=== PATIENT | female | born 1945 | race Caucasian/White ===

== ENCOUNTER 2016-11-12 12:17 | Inpatient (IN) | payer MEDICARE, MEDICAID ==
[~2016-11-12] VITALS: Ht 160 cm; Wt 70.0 kg
[~2016-11-12 12:17] MED LIST: ASCO500C6 PO; CITA20TA11 PO; GABA600T2 PO; INSLIS SUBQ; INSU100V7 SUBQ; LACT1CAP60 PO; LOPE2CAP PO; METO10TA3 PO; MORPHINE SULFATE PO; OMEG-38 PO; OMEP20CA11 PO; PRED5SOL7 PO
[2016-11-12 12:23] VITALS: BP 140/67; PULSE 107; RESP 30; O2SAT 92
--- NOTE | 2016-11-12 12:39 | ED.REPORT ---
HPI-Dizziness / Weakness Date of Service Nov 12, 2016 ED Provider: History of Present Illness: vomiting and decreased energy. Hx of uti's. Stopped medication to prevent UTI's, no reason. No primary care. can't walk or function, no eating. for 2 days. Getting weaker for a week. Nursing Notes Stated Complaint: NAUSEA/WEAK Chief Complaint: General Complaint Nursing Notes Reviewed: Yes Allergies: Coded Allergies: hexachlorophene (Verified Allergy, Unknown, 11/12/16) Scheduled Ascorbic Acid (Vitamin C) 250 Mg Tab.chew 500 MG PO DAILY Citalopram (Citalopram) 40 Mg Tablet 40 MG PO DAILY Ezetimibe (Ezetimibe) 10 Mg Tablet 10 MG PO QAM Gabapentin (Gabapentin) 600 Mg Tablet 600 MG PO HS Insulin Glargine (Lantus U100 Insulin Vial) 100 Unit/Ml Vial 35 UNIT SUBQ HS Insulin Human Lispro (HumaLOG U100 Insulin Vial) 100 Unit/Ml Unit 15 UNIT SUBQ TIDAC Check blood sugars before meals and at bedtime. Use correction factor only before meals. Blood Sugar Lispro Correction: <151, 0 units; 151-175, 1 unit; 176-200, 2 units; 201-225, 3 units; 226-250, 4 units; 251-275, 5 units; 276-300 , 6 units; 301-325, 7 units; 326-350, 8 units; 351-375, 9 units; 376-400, 10 units; >400, 12 units. Lactobac Cmb #3/Fos/Pantethine (Probiotic & Acidophilus Cap) 1 Each Capsule 1 EACH PO DAILY Morphine Sulfate (Morphine Sulfate) 15 Mg Tablet 15 MG PO QID Omeprazole (Omeprazole) 20 Mg Capsule.dr 20 MG PO DAILY Prednisolone Sod Phosphate (Prednisolone Sodium Phosphate) 15 Mg/5 Ml Solution 20 MG PO QAM Sulfamethoxazole/Trimeth 400-80 mg (Bactrim 400-80 mg) 1 Each Tablet 1 TABLET PO BID Scheduled PRN Clobetasol Propionate (Clobetasol Propionate) 15 Gm Oint...g. 1 APPLIC TP BID PRN PRN RASH Loperamide (Loperamide) 2 Mg Capsule 2 MG PO Q4H PRN PRN For Diarrhea or Loose Stool General Time Seen by MD: 12:37 Chief Complaint Generalized weakness Hx Obtained From: Patient Onset Occurred: 1 week ago Symptom Duration: Since onset Past Medical History Past Medical History Kidney cancer, adrenal cancer, lung cancer breast cancer Reports: Cancer, Diabetes mellitus, Denies: Asthma, Hypertension Past Surgical History breast, kidney adrenal Reports: Cholecystectomy Smoking History Current Every Day Smoker (1/2 pack a day for 60 years) Social History Alcohol Use: Denies alcohol use Drug Use: Denies drug use Occupation lives by self, no work or school. 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 Ambulatory Status Independent Review of Systems Basic Review of Systems : No dysuria, No frequency Allergy / Immune: No allergy Physical Exam Initial Vital Signs Vital Signs (First) Date Time Temp Pulse Resp B/P Pulse Ox O2 Delivery O2 Flow Rate FiO2 11/12/16 12:23 36.9 107 30 140/67 92 Room Air 11/12/16 14:57 1 Initial VS: Reviewed, Vital signs normal ENT: Mucous membranes moist, Conjunctiva normal, No scleral icterus Neck: Supple, Non-tender, Full range of motion Abdomen / GI: Soft, Non-tender, No guarding, No rebound, No distention Back: No CVA tenderness Lymphatic: No lymphadenopathy Extremities: Vascular intact, Neuro intact, No swelling, No tenderness Skin: Warm, Dry, No cyanosis Psychiatric: Mood/affect normal, Behavior normal, Normal thought content General/Constitutional: Awake, Alert, No acute distress, Well appearing, Well developed, Well hydrated, Well nourished, Cooperative, Not toxic appearing Head / Eyes: Atraumatic, Normocephalic, PERRL, EOMI Respiratory / Chest: Atraumatic, Breath sounds NL, Breath sounds = bilat, No respiratory distress Rales / Rhonchi: Positive: Rhonchi coarse L, Rhonchi coarse R Cardiovascular: Heart rate NL, Regular rhythm, Heart sounds NL Neurologic: Oriented X3, Speech NL, No motor deficits Interpretation & Diagnostics Interpretation & Diagnostics: OCEDURE: X-RAY CHEST, TWO VIEWS ([id number]) INDICATIONS: cough TECHNIQUE: 2 views of the chest were acquired. COMPARISON: Outside Film, CR, XR CHEST 2VW, 09/20/2015, 14:14. FINDINGS: Surgical changes and devices: Numerous surgical clips as before. Lungs and pleura: Redemonstration of left midlung subpleural nodule with spiculated appearance, grossly unchanged since 09/20/15. No acute disease. Scattered scarring/atelectasis Mediastinum: Mediastinal contours are normal. Heart size is normal. Bones and chest wall: No suspicious bony abnormalities. Soft tissues appear unremarkable. IMPRESSION: Overall, no interval change since 09/20/15 as detailed above. No acute disease. Lab Results Interpretation Result Diagram: 11/12/16 1300 11/12/16 1300 Test 11/12/16 13:00 11/12/16 13:31 11/12/16 14:57 White Blood Count 6.6th/mm3 (3.8-10.1) Red Blood Count 5.11mil/mm3 (3.90-5.20) Hemoglobin 16.1g/dL (12.0-15.6) Hematocrit 47.7% (35.0-46.0) Mean Corpuscular Volume 93.3fL (81-100) Mean Corpuscular Hemoglobin 31.5pg (27.0-35.0) Mean Corpuscular Hemoglobin Concent 33.8% (32.0-37.0) Red Cell Distribution Width 14.5% (12.3-15.4) Platelet Count 151bil/L (150-400) Neutrophils (%) (Auto) 75.7% (40-74) Lymphocytes (%) (Auto) 14.0% (14-46) Monocytes (%) (Auto) 9.2% (4-12) Eosinophils (%) (Auto) 0.3% (0-5) Basophils (%) (Auto) 0.6% (0-3) Sodium Level 134mEq/L (134-144) Potassium Level 4.3mEq/L (3.5-5.2) Chloride Level 91mEq/L (97-108) Carbon Dioxide Level 24mmol/L (18-29) Blood Urea Nitrogen 21mg/dL (8-27) Creatinine 1.01mg/dL (0.57-1.00) Estimat Glomerular Filtration Rate 77mL/min (>59) Glucose Level 309mg/dL (60-99) Calcium Level 8.6mg/dL (8.5-10.1) Total Bilirubin 0.4mg/dL (0.0-1.2) Aspartate Amino Transf (AST/SGOT) 25U/L (0-50) Alanine Aminotransferase (ALT/SGPT) 21U/L (0-32) Alkaline Phosphatase 127U/L (25-165) Troponin T < 0.010ug/L (0.0-0.011) Total Protein 6.4g/dL (6.4-8.4) Albumin 3.7g/dL (3.4-5.0) Procalcitonin 0.18ng/mL (0.00-0.08) Urinalysis Comment None Lactic Acid Level 1.6mmol/L (0.4-2.0) Urine Color Yellow (YELLOW) Urine Appearance Clear (CLEAR,HAZY) Urine pH 6.0 (5.0-8.0) Urine Specific [place] 1.005 (1.003-1.035) Urine Protein Negativemg/dL (NEG,TRACE) Urine Glucose (UA) 250mg/dL (NEGATIVE) Urine Ketones Tracemg/dL (NEGATIVE) Urine Occult Blood Trace (NEGATIVE) Urine Nitrite Negative (NEGATIVE) Urine Bilirubin Negative (NEGATIVE) Urine Urobilinogen Normalmg/dL (NORMAL) Urine Leukocyte Esterase Moderate (NEGATIVE) Urine RBC 0-2/hpf (0-2) Urine WBC 11-50/hpf (0-5) Urine Epithelial Cells Occasional/hpf (NONE-MOD) Urine Crystals None seen (NONE SEEN) Urine Bacteria None/hpf (NONE-FEW) Urine Hyaline Casts None/lpf (NONE) Urine Granular Casts None seen (NONE SEEN) Urine Waxy Casts None seen (NONE SEEN) Urine Red Blood Cell Casts None seen (NONE SEEN) Urine White Blood Cell Casts None seen (NONE SEEN) Urine Mucus None seen (None Seen) Urine Trichomonas None seen (NONE SEEN) Urine Yeast None (NONE SEEN) Urine Culture Reflexed Indicated Re-Eval/Medical Decision Med Decision/Clinical Course 71 year old female with weakness presents to the ER for evualation. Long hx. of UTI. Lives by self. Urine does show infection. No sign of hyperventalation or TIA Patient Discharge & Departure Impression: Primary Impression: Urinary tract infection Encounter type: initial encounter Additional Impression: Weakness generalized Disposition: ADMITTED TO HOSPITAL Referrals: NOPCP (PCP) EDSupervising Provider for APC: David Chun MD, Sue ARNP Nov 12, 2016 12:39
[2016-11-12] MEDS ORDERED: 0.9% Sodium Chloride 1,000 ML IV ONE (12:50)
[2016-11-12] MEDS ORDERED: Ondansetron 2 mg/mL 2 mL Inj IVPUSH ONE (12:50)
[2016-11-12 13:08] LABS: BASOPHILS % (AUTO) 0.6 % (0-3); EOSINOPHILS % (AUTO) 0.3 % (0-5); MONOCYTES % (AUTO) 9.2 % (4-12); Mean Corpuscular Hemoglobin 31.5 pg (27.0-35.0); Mean Corpuscular Volume 93.3 fL (81-100); NEUTROPHILS % (AUTO) 75.7 % (40-74); Platelet Count 151 bil/L (150-400)
[2016-11-12 13:59] LABS: APPEARANCE,URINE CLEAR (CLEAR,HAZY); COLOR,URINE YELLOW (YELLOW); OCCULT BLOOD,URINE TRACE (NEGATIVE)
[2016-11-12 14:01] LABS: TROPONIN T < 0.010 ug/L (0.0-0.011)
--- NOTE | 2016-11-12 14:25 | DRSVH ---
PROCEDURE: X-RAY CHEST, TWO VIEWS ([id number]) INDICATIONS: cough TECHNIQUE: 2 views of the chest were acquired. COMPARISON: Outside Film, CR, XR CHEST 2VW, 09/20/2015, 14:14. FINDINGS: Surgical changes and devices: Numerous surgical clips as before. Lungs and pleura: Redemonstration of left midlung subpleural nodule with spiculated appearance, gross ly unchanged since 09/20/15. No acute disease. Scattered scarring/atelectasis Mediastinum: Mediastinal contours are normal. Heart size is normal. Bones and chest wall: No suspicious bony abnormalities. Soft tissues appear unremarkable. IMPRESSION: Overall, no interval change since 09/20/15 as detailed above. No acute disease. Dictated by: Олег Lopez M.D. on 11/12/2016 at 14:22 Approved by: Олег Lopez M.D. on 11/12/2016 at 14:23
[2016-11-12 14:57] VITALS: RESP 22; O2SAT 89
[2016-11-12 15:22] LABS: APPEARANCE,URINE CLEAR (CLEAR,HAZY); COLOR,URINE YELLOW (YELLOW); OCCULT BLOOD,URINE TRACE (NEGATIVE); UROBILINOGEN,URINE NORMAL (NORMAL)
[2016-11-12] MEDS ORDERED: cefTRIAXone Inj 1,000 MG in Dextrose 5% Minibag Plus 50 ML IV ONE ×2 (15:30→17:45)
[2016-11-12] MEDS ORDERED: CLOB15OI2 TP (17:37)
[2016-11-12] MEDS ORDERED: MORP15TA PO (17:37)
[2016-11-12] MEDS ORDERED: EZET10TA27 PO (17:37)
[2016-11-12] MEDS ORDERED: Polyethylene Glycol (PEG) 17 Gm Powder PO PRN (17:45)
[2016-11-12] MEDS ORDERED: Ondansetron 2 mg/mL 2 mL Inj IVPUSH PRN (17:45)
[2016-11-12] MEDS ORDERED: Alum-Mag Hydrox-Simeth 30 mL Suspension PO PRN (17:45)
[2016-11-12] MEDS ORDERED: HYDROcodone-APAP 5-325 mg Tablet PO PRN (17:45)
[2016-11-12] MEDS ORDERED: Glucose 40% Oral Gel 15 Gm Tube PO PRN (17:50)
[2016-11-12] MEDS: 0.9% Sodium Chloride 1,000 ML IV SCH ×2 (18:14→22:58)
--- NOTE | 2016-11-12 18:16 | PCM.HPMED ---
Subjective Date of Service Nov 12, 2016 Primary Provider: Admitting Physician: Marek Bella MD Primary Care Physician: Rocco Attending Physician: Marek Bella MD Admit Status: From the Emergency Department Chief Complaint: Nausea, Vomiting, Weakness History of Present Illness: Patient is a 71 year old female with a past medical history of COPD, Diabetes Mellitus Type II, and chronic UTI's. She presents to the ER at [facility] complaining of a 2 day history of nausea, vomiting, and worsening weakness. Pt states her symptoms started yesterday, and she has been unable to tolerate any PO since then. She states she has become significantly weak over the last day and now is unable to ambulate as she is so weak. Pt denies any abdominal pain, fever, diarrhea, and constipation. She states her urine has been darker than normal. She denies increased urinary frequency, urgency, and hematuria. She states she is on chronic UTI supressive therapy with Bactrim, however she has not taken this medication in several weeks because she doesn't "want to". Pt has no other complaints or concerns at this time. Review of Systems: All systems reviewed and are negative except for what has already been mentioned in the HPI. Allergies Coded Allergies: hexachlorophene (Verified Allergy, Unknown, 06/14/15) Home Medications Pt is unsure of her home medications and her medication reconciliation has not yet been completed. PMH 1. Chronic UTI's 2. Diabetes Mellitus, Type II 3. Tobacco Use Disorder 4. COPD Surgical History None Family History Pt reports a history of heart disease in her mother and maternal uncle. Social History Hx Alcohol Use: No Hx Substance Use: No Hx Tobacco Use: Yes Smoking Status: Current Every Day Smoker (1/2 pack a day for 60 years) Exam Vital Signs Vital Sign - Last Date Time Temp Pulse Resp B/P Pulse Ox O2 Delivery O2 Flow Rate FiO2 11/12/16 14:57 22 89 Room Air 1 11/12/16 12:23 36.9 107 140/67 Exam GENERAL: NAD, Pt laying comfortably in bed HEENT: AT/NC, PERRLA, EOMI, MM parched CARDIAC: RRR, No M/R/G PULM: CTAB ABD: Soft, NT, ND, positive BS in all quadrants EXT: No C/C/E, No calve tenderness in bilateral lower extremities SKIN: Warm, dry, mild skin tenting present NEURO: Alert and oriented x3; Following all commands Lab and Diagnostics Result Diagram: 11/12/16 1300 11/12/16 1300 X-Rays, CTs and MRIs X-RAY CHEST, TWO VIEWS INDICATIONS: cough TECHNIQUE: 2 views of the chest were acquired. COMPARISON: Outside Film, CR, XR CHEST 2VW, 09/20/2015, 14:14. FINDINGS: Surgical changes and devices: Numerous surgical clips as before. Lungs and pleura: Redemonstration of left midlung subpleural nodule with spiculated appearance, grossly unchanged since 09/20/15. No acute disease. Scattered scarring/atelectasis Mediastinum: Mediastinal contours are normal. Heart size is normal. Bones and chest wall: No suspicious bony abnormalities. Soft tissues appear unremarkable. IMPRESSION: Overall, no interval change since 09/20/15 as detailed above. No acute disease. Assessment & Plan Patient is a 71 year old female who is admitted to hospital with significant Dehydration secondary to Nausea and Vomiting, as well as an Acute UTI. 1. Acute UTI - Start Rocephin 2 grams IV daily - Blood cultures x2 sent from the ER - Urine culture pending - Check procalcitonin now - Repeat CBC with diff in AM 2. Nausea with Vomiting, Acute - Secondary to #1 likely - Start Normal Saline IV at 100 mL/hour - IV Zofran 4-8 mg q 6 hours PRN 3. Dehydration - Secondary to #2 - Continue rehydration with IV fluids - Check BMP in AM 4. COPD - Not in acute exacerbation - Pt is unsure of which medication she takes at home - Resume home medications once medication reconciliation complete 5. Diabetes Mellitus, Type II - Check HgbA1c now - Check FSBS q AC and HS - Start medium dose SSI now 6. Tobacco Use Disorder - Nicotine patch PRN 7. Generalized Weakness - Related to #1, #2, and #3 - PT evaluation 8. Disposition - Anticipate pt will be in hospital for at least 2 midnights FULL CODE, per discussion with patient at bedside Marek Bella MD Nov 12, 2016 18:16
[2016-11-12 18:17] VITALS: BP 132/64; PULSE 101; RESP 16; O2SAT 94
[2016-11-12 18:23] VITALS: BP 131/75; PULSE 88; RESP 18
[2016-11-12] MEDS ORDERED: SULF1TAB34 PO ×2 (18:52→20:03)
[2016-11-12] MEDS ORDERED: CHOL500050 PO (18:52)
--- NOTE | 2016-11-12 19:13 | NUR ---
Admit Pt arrived to [facility] rm 1002 from the ED via guro. Rec'd report from MEMO Stahl. Pt was moved to the hospital bed via slider board and [address] Bella in room for admission. Admit and med rec complete. IV running NS at 75mls/hr from the ED. Pt oriented to room and call light completed by TARYN.
[2016-11-12] MEDS ORDERED: CITA40TA13 PO (19:56)
[2016-11-12] MEDS ORDERED: ASCO250T7 PO (19:56)
[2016-11-12] MEDS ORDERED: PRED15SO5 PO (19:59)
[2016-11-12] MEDS ORDERED: Insulin GLARgine 100 Unit/mL Syringe SUBQ SCH (22:45)
[2016-11-12] MEDS: Insulin LISPRO 300 Unit/3 mL Inj SUBQ SCH (22:58)
[2016-11-13 00:41] VITALS: BP 113/51; PULSE 78; RESP 16; O2SAT 91
[2016-11-13 04:18] VITALS: BP 115/71; PULSE 75; RESP 18; O2SAT 93
--- NOTE | 2016-11-13 04:48 | NUR ---
Mobility Steady to [facility] with minimal help. Pt is fully alert and able to request help as needed. Denies pain or nausea. Hourly rounding ongoing.
[2016-11-13 05:21] LABS: BASOPHILS % (AUTO) 0.3 % (0-3); EOSINOPHILS % (AUTO) 1.4 % (0-5); MONOCYTES % (AUTO) 14.8 % (4-12); Mean Corpuscular Hemoglobin 31.5 pg (27.0-35.0); Mean Corpuscular Volume 94.8 fL (81-100); NEUTROPHILS % (AUTO) 40.4 % (40-74); Platelet Count 134 bil/L (150-400)
[2016-11-13] MEDS: Insulin LISPRO 300 Unit/3 mL Inj SUBQ SCH ×2 (07:13→11:35)
[2016-11-13] MEDS ORDERED: CEPH-512 PO (07:58)
--- NOTE | 2016-11-13 07:59 | PCM.DIMED ---
Discharge Instructions Date of Service Nov 13, 2016 Dates of Hospitalization Nov 12, 2016 at 17:54 Discharge Diagnosis Discharge Diagnosis 1. Acute UTI 2. Nausea with Vomiting 3. Dehydration 4. COPD, Not in acute exacerbation 5. Diabetes Mellitus, Type II 6. Tobacco Use Disorder Diet Heart Healthy, Diabetic Activity No restrictions Call your provider Fever or Chills, Shortness of breath, Bleeding, Chest pain, Vomitting, Excessive diarrhea, Weakness (unilateral) Patient Instructions Follow-up with PCP in: 1 week (Pt to call for an appointment.) Marek Bella MD Nov 13, 2016 07:59
[2016-11-13] MEDS ORDERED: cefTRIAXone Inj 2,000 MG in Dextrose 5% Minibag Plus 50 ML IV SCH (08:30)
--- NOTE | 2016-11-13 12:26 | NUR ---
Social Work: initial Assessment Data & Assessment: See Initial Assessment. EMR reviewed. Patient is a 71 y/o female that admitted for UTI and weakness per H & P. SW met with patient at bedside to complete initial assessment, SW role reviewed and discharge planning discussed. Patient confirmed that her NOK is her son Kj Stoner [phone]. Patient does not have Advance Directive/DPOA and declined the information. Patient has a re-admit score of two no risk. Patient insurance is Medicare and [facility]. Patient does not have any VA or LTC benefits. Patient lives in a mobile home alone with three steps to enter. patient is independent at baseline and stated that she a cane and a walker to ambulate. Patient also has a WC at home if needed. Patient states she has ROSE MARY and has 77 hours a week for caregiver services. Patient has no HH or SNF history. Patient has no discharge needs at the current time. Paralegal Secretary provided her contact information on the patient's white board. Plan: Patient will discharge home no needs via POV. SW will continue to follow. Clinton Schaefer LMSW, TRAN Addendum: 11/13/16 at 1242 by CLINTON AGARWAL Amended: Links added.
--- NOTE | 2016-11-13 12:27 | PCM.DC.MED ---
Discharge Summary Date of Service Nov 13, 2016 Dates of Hospitalization Date of Hospital Admission Nov 12, 2016 at 17:54 Date of Discharge: Nov 13, 2016 Providers: Admitting Physician: Ashley Monzon MD Primary Care Physician: Rocco Attending Physician: Ashley Monzon MD Diagnosis at Time of Discharge Diagnosis at Time of Discharge 1. Acute UTI 2. Nausea with Vomiting 3. Dehydration 4. COPD, Not in acute exacerbation 5. Diabetes Mellitus, Type II 6. Tobacco Use Disorder Procedures XRay, CTs & MRIs X-RAY CHEST, TWO VIEWS INDICATIONS: cough TECHNIQUE: 2 views of the chest were acquired. COMPARISON: Outside Film, CR, XR CHEST 2VW, 09/20/2015, 14:14. FINDINGS: Surgical changes and devices: Numerous surgical clips as before. Lungs and pleura: Redemonstration of left midlung subpleural nodule with spiculated appearance, grossly unchanged since 09/20/15. No acute disease. Scattered scarring/atelectasis Mediastinum: Mediastinal contours are normal. Heart size is normal. Bones and chest wall: No suspicious bony abnormalities. Soft tissues appear unremarkable. IMPRESSION: Overall, no interval change since 09/20/15 as detailed above. No acute disease. Brief History Patient is a 71 year old female with a past medical history of COPD, Diabetes Mellitus Type II, and chronic UTI's. She presents to the ER at [facility] complaining of a 2 day history of nausea, vomiting, and worsening weakness. Pt states her symptoms started yesterday, and she has been unable to tolerate any PO since then. She states she has become significantly weak over the last day and now is unable to ambulate as she is so weak. Pt denies any abdominal pain, fever, diarrhea, and constipation. She states her urine has been darker than normal. She denies increased urinary frequency, urgency, and hematuria. She states she is on chronic UTI supressive therapy with Bactrim, however she has not taken this medication in several weeks because she doesn't "want to". Pt has no other complaints or concerns at this time. Hospital Course Patient is a 71 year old female who is admitted to hospital with significant Dehydration secondary to Nausea and Vomiting, as well as an Acute UTI. 1. Acute UTI - Pt was started on Rocephin 2 grams IV daily - Blood cultures x2 sent from the ER - Urine culture pending - Pt discharged on Keflex 2. Nausea with Vomiting, Acute - Resolved - Secondary to #1 likely 3. Dehydration - Resolved - Secondary to #2 - Rehydrated with IV fluids 4. COPD - Not in acute exacerbation - Pt is unsure of which medication she takes at home - Resume home medications once medication reconciliation complete 5. Diabetes Mellitus, Type II - Continue home medications 6. Tobacco Use Disorder - Nicotine patch PRN 7. Generalized Weakness - Related to #1, #2, and #3 - PT evaluation 8. Disposition - Pt discharged to home in good/stable condition Exam Vital Signs (Last) Date Time Temp Pulse Resp B/P Pulse Ox O2 Delivery O2 Flow Rate FiO2 11/13/16 04:18 36.4 75 18 115/71 93 Room Air 11/12/16 18:23 1.00 Exam GENERAL: NAD, Pt laying in bed comfortably HEENT: AT/NC, PERRLA, EOMI, Mucus Membranes are moist CARDIAC: RRR; No M/R/G PULM: CTAB; No wheezes or rhonchi bilaterally ABD: Soft, Nontender, Nondistended, Positive bowel sounds in all quadrants, No Hepatosplenomegaly appreciated EXT: No C/C/E; No calf tenderness bilaterally SKIN: Warm, Dry, Froid, and Intact NEURO: Alert and oriented x3; Following all commands PSYCH: Normal mood and affect Test 11/12/16 13:00 11/12/16 13:31 11/12/16 14:57 11/13/16 04:45 Hemoglobin A1c 10.3% (4.8-5.6) Troponin T < 0.010ug/L (0.0-0.011) Procalcitonin 0.18ng/mL (0.00-0.08) Urinalysis Comment None Lactic Acid Level 1.6mmol/L (0.4-2.0) Urine Color Yellow (YELLOW) Urine Appearance Clear (CLEAR,HAZY) Urine pH 6.0 (5.0-8.0) Urine Specific [place] 1.005 (1.003-1.035) Urine Protein Negativemg/dL (NEG,TRACE) Urine Glucose (UA) 250mg/dL (NEGATIVE) Urine Ketones Tracemg/dL (NEGATIVE) Urine Occult Blood Trace (NEGATIVE) Urine Nitrite Negative (NEGATIVE) Urine Bilirubin Negative (NEGATIVE) Urine Urobilinogen Normalmg/dL (NORMAL) Urine Leukocyte Esterase Moderate (NEGATIVE) Urine RBC 0-2/hpf (0-2) Urine WBC 11-50/hpf (0-5) Urine Epithelial Cells Occasional/hpf (NONE-MOD) Urine Crystals None seen (NONE SEEN) Urine Bacteria None/hpf (NONE-FEW) Urine Hyaline Casts None/lpf (NONE) Urine Granular Casts None seen (NONE SEEN) Urine Waxy Casts None seen (NONE SEEN) Urine Red Blood Cell Casts None seen (NONE SEEN) Urine White Blood Cell Casts None seen (NONE SEEN) Urine Mucus None seen (None Seen) Urine Trichomonas None seen (NONE SEEN) Urine Yeast None (NONE SEEN) Urine Culture Reflexed Indicated White Blood Count 5.8th/mm3 (3.8-10.1) Red Blood Count 4.45mil/mm3 (3.90-5.20) Hemoglobin 14.0g/dL (12.0-15.6) Hematocrit 42.2% (35.0-46.0) Mean Corpuscular Volume 94.8fL (81-100) Mean Corpuscular Hemoglobin 31.5pg (27.0-35.0) Mean Corpuscular Hemoglobin Concent 33.2% (32.0-37.0) Red Cell Distribution Width 14.2% (12.3-15.4) Platelet Count 134bil/L (150-400) Neutrophils (%) (Auto) 40.4% (40-74) Lymphocytes (%) (Auto) 42.9% (14-46) Monocytes (%) (Auto) 14.8% (4-12) Eosinophils (%) (Auto) 1.4% (0-5) Basophils (%) (Auto) 0.3% (0-3) Sodium Level 140mEq/L (134-144) Potassium Level 4.8mEq/L (3.5-5.2) Chloride Level 102mEq/L (97-108) Carbon Dioxide Level 27mmol/L (18-29) Blood Urea Nitrogen 17mg/dL (8-27) Creatinine 0.88mg/dL (0.57-1.00) Estimat Glomerular Filtration Rate 90mL/min (>59) Glucose Level 148mg/dL (60-99) Calcium Level 8.4mg/dL (8.5-10.1) Total Bilirubin 0.3mg/dL (0.0-1.2) Aspartate Amino Transf (AST/SGOT) 17U/L (0-50) Alanine Aminotransferase (ALT/SGPT) 15U/L (0-32) Alkaline Phosphatase 97U/L (25-165) Total Protein 5.0g/dL (6.4-8.4) Albumin 3.1g/dL (3.4-5.0) Discharge Medications Discharge Medications Ascorbic Acid (Vitamin C) 250 Mg Tab.chew 500 MG PO DAILY (Reported) Cephalexin (Keflex) 500 Mg Capsule 500 MG PO QID Prescribed by: ASHLEY MONZON MD Citalopram (Citalopram) 40 Mg Tablet 40 MG PO DAILY (Reported) Ezetimibe (Ezetimibe) 10 Mg Tablet 10 MG PO QAM (Reported) Gabapentin (Gabapentin) 600 Mg Tablet 600 MG PO HS (Reported) Insulin Glargine (Lantus U100 Insulin Vial) 100 Unit/Ml Vial 35 UNIT SUBQ HS ( Reported) Insulin Human Lispro (HumaLOG U100 Insulin Vial) 100 Unit/Ml Unit 15 UNIT SUBQ TIDAC (Reported) Check blood sugars before meals and at bedtime. Use correction factor only before meals. Blood Sugar Lispro Correction: <151, 0 units; 151-175, 1 unit; 176-200, 2 units; 201-225, 3 units; 226-250, 4 units; 251-275, 5 units; 276-300 , 6 units; 301-325, 7 units; 326-350, 8 units; 351-375, 9 units; 376-400, 10 units; >400, 12 units. Lactobac Cmb #3/Fos/Pantethine (Probiotic & Acidophilus Cap) 1 Each Capsule 1 EACH PO DAILY (Reported) Morphine Sulfate (Morphine Sulfate) 15 Mg Tablet 15 MG PO QID (Reported) Omeprazole (Omeprazole) 20 Mg Capsule.dr 20 MG PO DAILY (Reported) Prednisolone Sod Phosphate (Prednisolone Sodium Phosphate) 15 Mg/5 Ml Solution 20 MG PO QAM (Reported) Sulfamethoxazole/Trimeth 400-80 mg (Bactrim 400-80 mg) 1 Each Tablet 1 TABLET PO BID (Reported) As needed Clobetasol Propionate (Clobetasol Propionate) 15 Gm Oint...g. 1 APPLIC TP BID PRN PRN RASH (Reported) Loperamide (Loperamide) 2 Mg Capsule 2 MG PO Q4H PRN PRN For Diarrhea or Loose Stool (Reported) Followup Plan Discharge Diet: Heart Healthy, Diabetic Discharge Activity: No restrictions Follow-up with PCP in: 1 week (Pt to call for an appointment.) Time spent 25 minutes Ashley Monzon MD Nov 13, 2016 12:27
--- NOTE | 2016-11-13 12:50 | NUR ---
Discharge: Pt given discharge instructions early in am. Ride coming from [facility]. Iv dc'd saline lock intact. Pt took shower. All dc instructions gone over, although pt not really listening as she was anxious to not have her ride wait. Pt just signed and refused to wait for script to be found from Physician. Hospitalist alpa paged and informed pt would not wait and asked hospitalist to call in script to [facility]. Pt out to private vehicle at approx 1215.
[2017-01-25] MEDS ORDERED: IPRA3AMP IH (13:26)
[2017-01-25] MEDS ORDERED: FLUO20DR4 TOPICAL (13:26)
[2017-01-25] MEDS ORDERED: CHOL500050 PO (13:26)
[2017-01-25] MEDS ORDERED: SULF1TAB34 PO (13:26)
[2017-01-25] MEDS ORDERED: LOPE2CAP PO (13:26)
[2017-01-25] MEDS ORDERED: BUPR100T15 PO (13:26)
[2017-01-25] MEDS ORDERED: GABA-502 PO (13:26)
[2017-01-25] MEDS ORDERED: ATRINH INH (13:26)
[2017-01-25] MEDS ORDERED: CHOL200025 PO (13:26)
== END 2016-11-13 12:10 | disposition home or self-care (01) | DRG 690 ==
LOC: SED 12:17 → OBSVTOIN 17:54 → OSC 17:54
PROVIDERS: ADMIT Family Medicine; ATTEND Family Medicine
DX: N39.0 Urinary tract infection, site not specified (principal); Z79.4 Long term (current) use of insulin; Z79.52 Long term (current) use of systemic steroids; F17.210 Nicotine dependence, cigarettes, uncomplicated; T37.0X6A Underdosing of sulfonamides, initial encounter; Z91.128 Patient's intentional underdosing of medication regimen for other reason; R11.2 Nausea with vomiting, unspecified; E86.0 Dehydration; J44.9 Chronic obstructive pulmonary disease, unspecified; E11.9 Type 2 diabetes mellitus without complications; M62.81 Muscle weakness (generalized)

== ENCOUNTER 2017-01-04 09:16 | Emergency (ER) | payer MEDICARE, MEDICAID ==
[~2017-01-04] VITALS: Ht 161.3 cm; Wt 68.2 kg
[~2017-01-04 09:16] MED LIST changes: +ASCO250T7 PO; -ASCO500C6 PO; +CEPH-512 PO; -CITA20TA11 PO; +CITA40TA13 PO; +CLOB15OI2 TP; +EZET10TA27 PO; -METO10TA3 PO; +MORP15TA PO; -MORPHINE SULFATE PO; -OMEG-38 PO; +PRED15SO5 PO; -PRED5SOL7 PO; +SULF1TAB34 PO
[2017-01-04 09:25] VITALS: BP 152/72; PULSE 108; RESP 16; O2SAT 92
[2017-01-04 10:00] LABS: BASOPHILS % (AUTO) 0.2 % (0-3); EOSINOPHILS % (AUTO) 0.4 % (0-5); MONOCYTES % (AUTO) 9.7 % (4-12); Mean Corpuscular Hemoglobin 31.1 pg (27.0-35.0); Mean Corpuscular Volume 93.9 fL (81-100); NEUTROPHILS % (AUTO) 78.9 % (40-74); Platelet Count 238 bil/L (150-400)
--- NOTE | 2017-01-04 10:19 | ED.REPORT ---
HPI-General Illness Date of Service January 04, 2017 ED Provider: Paul Melgar MD 71 year old female with a history of cancers of the kidney, adrenal glands, lung , breast, skin, and current epiglottal cancer presents to the ER accompanied by her daughter complaining of nausea and vomiting onset yesterday evening. Associated symptoms include left chest pain onset last night, chronic SOB, several weeks of persistent cough, and UTI symptoms. Patient denies fever. She is scheduled for an appointment to start chemotherapy and radiation therapy. Nursing Notes Stated Complaint: NAUSEA/VOMITING/WEAKNESS Chief Complaint: General Complaint Nursing Notes Reviewed: Yes Allergies: Coded Allergies: hexachlorophene (Verified Allergy, Unknown, 11/12/16) prednisone (Verified Adverse Reaction, Intermediate, MAKES ME SICK, ) Scheduled Ascorbic Acid (Vitamin C) 250 Mg Tab.chew 500 MG PO DAILY Citalopram (Citalopram) 40 Mg Tablet 40 MG PO DAILY Ezetimibe (Ezetimibe) 10 Mg Tablet 10 MG PO QAM Gabapentin (Gabapentin) 600 Mg Tablet 600 MG PO HS Insulin Glargine (Lantus U100 Insulin Vial) 100 Unit/Ml Vial 35 UNIT SUBQ HS Insulin Human Lispro (HumaLOG U100 Insulin Vial) 100 Unit/Ml Unit 15 UNIT SUBQ TIDAC Check blood sugars before meals and at bedtime. Use correction factor only before meals. Blood Sugar Lispro Correction: <151, 0 units; 151-175, 1 unit; 176-200, 2 units; 201-225, 3 units; 226-250, 4 units; 251-275, 5 units; 276-300 , 6 units; 301-325, 7 units; 326-350, 8 units; 351-375, 9 units; 376-400, 10 units; >400, 12 units. Lactobac Cmb #3/Fos/Pantethine (Probiotic & Acidophilus Cap) 1 Each Capsule 1 EACH PO DAILY Morphine Sulfate (Morphine Sulfate) 15 Mg Tablet 15 MG PO QID Omeprazole (Omeprazole) 20 Mg Capsule.dr 20 MG PO DAILY Prednisolone Sod Phosphate (Prednisolone Sodium Phosphate) 15 Mg/5 Ml Solution 20 MG PO QAM Sulfamethoxazole/Trimeth 400-80 mg (Bactrim 400-80 mg) 1 Each Tablet 1 TABLET PO DAILY Scheduled PRN Clobetasol Propionate (Clobetasol Propionate) 15 Gm Oint...g. 1 APPLIC TP BID PRN PRN RASH Loperamide (Loperamide) 2 Mg Capsule 2 MG PO Q4H PRN PRN For Diarrhea or Loose Stool General Time Seen by MD: 10:17 Chief Complaint Vomiting Hx Obtained From: Patient Arrived By: Walk-in Sudden in Onset?: No Onset Occurred: Yesterday Symptom Duration: Since onset Associated with: Reports: Chest pain, Cough Context Related History: Reports Cancer Similar Sx Previous: Yes Past Medical History Past Medical History Kidney cancer, adrenal cancer, lung cancer breast cancer Reports: Cancer, Diabetes mellitus, Denies: Hypertension Past Surgical History breast, kidney adrenal Reports: Cholecystectomy Smoking History Current Every Day Smoker Social History Alcohol Use: Denies alcohol use Drug Use: Denies drug use Occupation lives by self, no work or school. 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 Physical Exam Vital Signs Vital Signs Date Time Temp Pulse Resp B/P Pulse Ox O2 Delivery O2 Flow Rate FiO2 01/04/17 09:25 36.4 108 16 152/72 92 Room Air Initial VS: Reviewed Head / Eyes: Atraumatic, Normocephalic Neck: Supple, Non-tender, Full range of motion Abdomen / GI: Soft, Non-tender, No guarding, No rebound, No distention Extremities: Vascular intact, Neuro intact, No swelling, No tenderness Skin: Warm, Dry, No cyanosis Neurologic: Alert, Oriented, Nonfocal Psychiatric: Mood/affect normal, Behavior normal, Normal thought content General/Constitutional: Awake, Alert, No acute distress, Well developed, Well nourished Respiratory / Chest: No rales, No wheezing, No retractions, No stridor, No chest tenderness Rales / Rhonchi: Positive: Rhonchi diffuse Cardiovascular: Regular rhythm, No murmurs Heart Rate / Rhythm: Positive: Tachycardia Interpretation & Diagnostics Lab Results Interpretation Result Diagram: 01/04/17 0940 01/04/17 0940 Test 5/29/17 09:40 01/04/17 10:49 01/04/17 11:12 White Blood Count 13.3th/mm3 (3.8-10.1) Red Blood Count 4.88mil/mm3 (3.90-5.20) Hemoglobin 15.2g/dL (12.0-15.6) Hematocrit 45.8% (35.0-46.0) Mean Corpuscular Volume 93.9fL (81-100) Mean Corpuscular Hemoglobin 31.1pg (27.0-35.0) Mean Corpuscular Hemoglobin Concent 33.2% (32.0-37.0) Red Cell Distribution Width 13.9% (12.3-15.4) Platelet Count 238bil/L (150-400) Neutrophils (%) (Auto) 78.9% (40-74) Lymphocytes (%) (Auto) 10.3% (14-46) Monocytes (%) (Auto) 9.7% (4-12) Eosinophils (%) (Auto) 0.4% (0-5) Basophils (%) (Auto) 0.2% (0-3) Sodium Level 133mEq/L (134-144) Potassium Level 4.3mEq/L (3.5-5.2) Chloride Level 90mEq/L (97-108) Carbon Dioxide Level 22mmol/L (18-29) Blood Urea Nitrogen 18mg/dL (8-27) Creatinine 1.12mg/dL (0.57-1.00) Estimat Glomerular Filtration Rate 68mL/min (>59) Glucose Level 296mg/dL (60-99) Calcium Level 9.4mg/dL (8.5-10.1) Total Bilirubin 0.6mg/dL (0.0-1.2) Aspartate Amino Transf (AST/SGOT) 15U/L (0-50) Alanine Aminotransferase (ALT/SGPT) 13U/L (0-32) Alkaline Phosphatase 143U/L (25-165) Troponin T 0.010ug/L (0.0-0.011) Pro-B-Type Natriuretic Peptide 612.6pg/mL (0-301) Total Protein 7.0g/dL (6.4-8.4) Albumin 3.3g/dL (3.4-5.0) Hold Kirk Top Tube Received (Received) Lactic Acid Level 1.4mmol/L (0.4-2.0) Urine Color Yellow (YELLOW) Urine Appearance Hazy (CLEAR,HAZY) Urine pH 6.0 (5.0-8.0) Urine Specific [place] 1.021 (1.003-1.035) Urine Protein 30mg/dL (NEG,TRACE) Urine Glucose (UA) 100mg/dL (NEGATIVE) Urine Ketones 80mg/dL (NEGATIVE) Urine Occult Blood Negative (NEGATIVE) Urine Nitrite Negative (NEGATIVE) Urine Bilirubin Negative (NEGATIVE) Urine Urobilinogen Normalmg/dL (NORMAL) Urine Leukocyte Esterase Small (NEGATIVE) Urine RBC 0-2/hpf (0-2) Urine WBC 11-50/hpf (0-5) Urine Epithelial Cells Moderate/hpf (NONE-MOD) Urine Crystals None seen (NONE SEEN) Urine Bacteria Few/hpf (NONE-FEW) Urine Hyaline Casts None/lpf (NONE) Urine Granular Casts None seen (NONE SEEN) Urine Waxy Casts None seen (NONE SEEN) Urine Red Blood Cell Casts None seen (NONE SEEN) Urine White Blood Cell Casts None seen (NONE SEEN) Urine Mucus None seen (None Seen) Urine Trichomonas None seen (NONE SEEN) Urine Yeast None (NONE SEEN) Urinalysis Comment None Urine Culture Reflexed Indicated ECG Interpretation ECG Interpretation: Sinus tachycardia, rate 104 Ventricular trigeminy Time: 10:57 Interpreted by: ED physician X-Ray Chest Interpretation Chest Xray Interpretation: IMPRESSION: Increased left mid lung mass. IV contrast enhanced chest CT recommended for further assessment. Dictated by: Karen Slaughter M.D. on 01/04/2017 at 10:19 Approved by: Karen Slaughter M.D. on 01/04/2017 at 10:20 View: Portable, 1 view Interpretation / Wet Read by: Interpret - Radiologist CT Chest Interpretation IMPRESSION: 1. Increased airspace opacity within the left upper lobe laterally, underlying the previously seen left rib fractures. Findings may be secondary to scarring/lung injury, given the history of prior injury in this location. However, continued imaging followup is recommended to exclude the less likely possibility of underlying neoplasm. Dictated by: Karen Slaughter M.D. on 01/04/2017 at 11:32 Approved by: Karen Slaughter M.D. on 01/04/2017 at 11:37 Study type: Chest CT w contrast Interpretation / Wet Read by: Interpret - Radiologist Re-Eval/Medical Decision Source of Hx: Old records Time of Eval: 10:29 Re-Evaluation/Progress Note: Discussed need for chest CT. Time of Eval: 12:31 Patient Status: Condition improved, Moderate relief Re-Evaluation/Progress Note: Discussed lab and imaging results and plan to discharge. Patient is amenable to the plan. Return precautions given. All other questions addressed. Counseled Regarding: Diagnosis, Lab results, Need for follow-up, When/why to return to ED Discharge & Departure Primary Impression: Vomiting and diarrhea Disposition: Home Discharge Condition All VS Reviewed: Yes Condition: Stable Patient Instructions: Acute Diarrhea (ED), Acute Nausea and Vomiting (DC) Additional Instructions: Your workup today was reassuring. I do not believe that there is any immediately dangerous cause for your symptoms at this time. Your urine is being cultured, the results should be available in 1-2 days. You will receive a phone call with any abnormal results from this culture. Chest CT scan is abnormal but most consistent with scarring and not as likely related to new tumor or infection. This will need follow-up in the coming weeks and months. Take the anti-nausea medicine as prescribed. Keep your appointment with your primary care physician for tomorrow. Return to the ER if you develop worsening symptoms, fever, chills, chest pain, shortness of breath, or any other concerning symptoms. Referrals: NOPCP (PCP) Jacques Porter MD Attestation Portions of this note were transcribed by Willi Mckinley. I, Dr. Melgar, personally performed the history, physical exam and medical decision-making; I reviewed and confirmed the accuracy of the information in the transcribed note. Signed by: Gerson Seth, 01/04/2017 at 12:35 copies to: Jacques Porter MD, Kirk H MD January 04, 2017 10:19 WILLI MCKINLEY January 04, 2017 10:26
[2017-01-04 10:22] LABS: TROPONIN T 0.01 ug/L (0.0-0.011)
--- NOTE | 2017-01-04 10:22 | DRSVH ---
PROCEDURE: X-RAY CHEST ONE VIEW, PORTABLE ([id number]) INDICATIONS: SHORTNESS OF BREATH TECHNIQUE: One view of the chest was acquired. COMPARISON: None. FINDINGS: Surgical changes and devices: None. Lungs and pleura: No pleural effusions or pneumothorax. Increased left midlung nodular density measu ring 41 mm. Mediastinum: Mediastinal contours appear normal. Heart size is normal. Bones and chest wall: No suspicious bony lesions. Overlying soft tissues appear unremarkable. IMPRESSION: Increased left mid lung mass. IV contrast enhanced chest CT recommended for further asses sment. Dictated by: Karen Slaughter M.D. on 01/04/2017 at 10:19 Approved by: Karen Slaughter M.D. on 01/04/2017 at 10:20
[2017-01-04] MEDS ORDERED: 0.9% Sodium Chloride 1,000 ML IV ONE (10:25)
--- NOTE | 2017-01-04 11:38 | DRSVH ---
PROCEDURE: CT CHEST WITH CONTRAST ([id number]) INDICATIONS: mass on xray TECHNIQUE: After the administration of intravenous contrast, 5 mm thick sections acquired from the pulmonary api julian to the posterior costophrenic angles. 7 mm thick coronal and sagittal MIP reformats were acquire d. For radiation dose reduction, the following was used: automated exposure control, adjustment of mA and/or kV according to patient size. COMPARISON: [facility], CT, CT CHEST WO CON, 05/21/2016, 13:46. FINDINGS: Image quality: Excellent. Lungs and pleura: There is increased, moderate airspace opacity within the left upper lobe laterally, measuring 10.8 cm anteroposterior by 4.9 cm craniocaudal by 3.6 cm transverse. Severe emphysema with apical predominance. Increased ill-defined opacity within the right midlung laterally, consistent wi th scarring. No pleural effusions or pneumothorax. Central and peripheral airways are patent and nor mal in caliber. Mediastinum: Heart size is normal. No pericardial effusion. No mediastinal or hilar adenopathy by size criteria. Thoracic aorta and central pulmonary arteries are normal in size. Esophagus is javon l in caliber. No hiatal hernia. Bones and chest wall: Multiple left rib fractures are present, as before, overlying the above describ ed pulmonary density. No vertebral body compression fractures. No axillary or supraclavicular adenop athy by size criteria. Thyroid gland is within normal limits. Abdomen: Visualized upper abdominal solid organs appear normal. Upper abdominal bowel loops are nor mal in caliber. IMPRESSION: 1. Increased airspace opacity within the left upper lobe laterally, underlying the previously seen le ft rib fractures. Findings may be secondary to scarring/lung injury, given the history of prior injur y in this location. However, continued imaging followup is recommended to exclude the less likely pos sibility of underlying neoplasm. Dictated by: Karen Slaughter M.D. on 01/04/2017 at 11:32 Approved by: Karen Slaughter M.D. on 01/04/2017 at 11:37
[2017-01-04 11:39] LABS: APPEARANCE,URINE HAZY (CLEAR,HAZY); COLOR,URINE YELLOW (YELLOW)
[2017-01-04 11:40] LABS: OCCULT BLOOD,URINE NEGATIVE (NEGATIVE); UROBILINOGEN,URINE NORMAL (NORMAL)
[2017-01-04 12:02] VITALS: BP 137/70; PULSE 98; RESP 28; O2SAT 95
[2017-01-04] MEDS ORDERED: ONDA4TAB9 PO (12:40)
[2017-01-04 13:00] VITALS: BP 138/78; PULSE 92; RESP 16; O2SAT 92
[2017-01-25] MEDS ORDERED: BUPR100T15 PO (13:26)
[2017-01-25] MEDS ORDERED: ATRINH INH (13:26)
[2017-01-25] MEDS ORDERED: CHOL200025 PO (13:26)
[2017-01-25] MEDS ORDERED: IPRA3AMP IH (13:26)
[2017-01-25] MEDS ORDERED: CHOL500050 PO (13:26)
[2017-01-25] MEDS ORDERED: LOPE2CAP PO (13:26)
[2017-01-25] MEDS ORDERED: FLUO20DR4 TOPICAL (13:26)
[2017-01-25] MEDS ORDERED: GABA-502 PO (13:26)
[2017-01-25] MEDS ORDERED: SULF1TAB34 PO (13:26)
== END 2017-01-04 13:01 | disposition home or self-care (01) ==
LOC: SED 09:16
DX: R11.2 Nausea with vomiting, unspecified (principal); R19.7 Diarrhea, unspecified; R07.9 Chest pain, unspecified; R06.02 Shortness of breath; R05 Cough; E11.9 Type 2 diabetes mellitus without complications; F17.200 Nicotine dependence, unspecified, uncomplicated; Z79.4 Long term (current) use of insulin; Z88.8 Allergy status to other drugs, medicaments and biological substances
CPT/HCPCS: 36415; 71010; 71260; 80053; 81000; 83605; 83880; 84484; 85025; 87040; 87077; 87086; 87088; 93005; 96360; 96361; 99285; J7030; Q9967

== ENCOUNTER 2017-01-06 09:40 | Inpatient (IN) | payer MEDICARE, MEDICAID ==
[2017-01-06] VITALS (8 sets, daily range): BP systolic 90–139; BP diastolic 47–68; PULSE 79–106; RESP 17–20; O2SAT 82–99
[~2017-01-06] VITALS: Ht 160 cm; Wt 69.2 kg
[~2017-01-06 09:40] MED LIST changes: -CEPH-512 PO; +ONDA4TAB9 PO
--- NOTE | 2017-01-06 10:08 | ED.REPORT ---
HPI-General Illness Date of Service January 06, 2017 ED Provider: The patient is a 71 year old female with history of diabetes mellitus, and cancers of the kidney, adrenal glands, lung, breast, skin, and current epiglottal cancer, who presents who presents to the emergency department complaining of generalized weakness. she has also experienced confusion, trouble breathing, persistent cough, and nausea. It is unclear if she has vomited today. She has not had diarrhea. The patient was seen in the emergency department 2 days ago for nausea and vomiting. She was doing better at discharge and yesterday. This morning the patient was minimally responsive when her daughter checked on her and was subsequently brought to the emergency department. Nursing Notes Stated Complaint: SEVERE WEAKNESS, CONFUSION, NAUSEA Chief Complaint: General Complaint Nursing Notes Reviewed: Yes Allergies: Coded Allergies: hexachlorophene (Verified Allergy, Unknown, 11/12/16) prednisone (Verified Adverse Reaction, Intermediate, MAKES ME SICK, ) Scheduled Ascorbic Acid (Vitamin C) 250 Mg Tab.chew 500 MG PO DAILY Citalopram (Citalopram) 40 Mg Tablet 40 MG PO DAILY Ezetimibe (Ezetimibe) 10 Mg Tablet 10 MG PO QAM Gabapentin (Gabapentin) 600 Mg Tablet 600 MG PO HS Insulin Glargine (Lantus U100 Insulin Vial) 100 Unit/Ml Vial 35 UNIT SUBQ HS Insulin Human Lispro (HumaLOG U100 Insulin Vial) 100 Unit/Ml Unit 15 UNIT SUBQ TIDAC Check blood sugars before meals and at bedtime. Use correction factor only before meals. Blood Sugar Lispro Correction: <151, 0 units; 151-175, 1 unit; 176-200, 2 units; 201-225, 3 units; 226-250, 4 units; 251-275, 5 units; 276-300 , 6 units; 301-325, 7 units; 326-350, 8 units; 351-375, 9 units; 376-400, 10 units; >400, 12 units. Lactobac Cmb #3/Fos/Pantethine (Probiotic & Acidophilus Cap) 1 Each Capsule 1 EACH PO DAILY Morphine Sulfate (Morphine Sulfate) 15 Mg Tablet 15 MG PO QID Omeprazole (Omeprazole) 20 Mg Capsule.dr 20 MG PO DAILY Prednisolone Sod Phosphate (Prednisolone Sodium Phosphate) 15 Mg/5 Ml Solution 20 MG PO QAM Sulfamethoxazole/Trimeth 400-80 mg (Bactrim 400-80 mg) 1 Each Tablet 1 TABLET PO DAILY Scheduled PRN Clobetasol Propionate (Clobetasol Propionate) 15 Gm Oint...g. 1 APPLIC TP BID PRN PRN RASH Loperamide (Loperamide) 2 Mg Capsule 2 MG PO Q4H PRN PRN For Diarrhea or Loose Stool Ondansetron ODT (Zofran ODT) 4 Mg Tablet 4 MG PO Q4H PRN PRN For Nausea General Time Seen by MD: 10:08 Chief Complaint Weakness Hx Obtained From: Patient, Other family... Arrived By: Wheelchair Sudden in Onset?: Yes Onset Occurred: 9 - 12 hours ago Symptom Duration: Since onset Severity: Current: No pain currently Severity: Maximum: No pain Recent Healthcare: No recent hospitalization, Recent doctor visit Similar Sx Previous: Yes Past Medical History Past Medical History Kidney cancer, adrenal cancer, lung cancer, breast cancer, skin cancer, epiglottal cancer Reports: Diabetes mellitus Past Surgical History breast, kidney, adrenal Reports: Cholecystectomy Family History Noncontributory Smoking History Current Every Day Smoker Social History Alcohol Use: Denies alcohol use Drug Use: Denies drug use Occupation lives by self, no work or school. 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 Physical Exam Vital Signs Vital Signs Date Time Temp Pulse Resp B/P Pulse Ox O2 Delivery O2 Flow Rate FiO2 01/06/17 11:08 37.2 104 17 117/47 93 Nasal Cannula 2 01/06/17 10:37 106 20 97 Nasal Cannula 4 01/06/17 10:02 38.4 79 18 121/68 82 Room Air Initial VS: Reviewed, Vital signs abnormal (hypoxic and febrile) Head / Eyes: Atraumatic, Normocephalic, PERRL ENT: Mucous membranes moist, Conjunctiva normal, No scleral icterus Neck: Supple, Non-tender, Full range of motion Cardiovascular: Regular rate & rhythm, Heart sounds normal, Intact distal pulses Abdomen / GI: Soft, Non-tender, No guarding, No rebound, No distention Lymphatic: No lymphadenopathy Extremities: Vascular intact, Neuro intact, No swelling, No tenderness Skin: Warm, Dry, No cyanosis Neurologic: Nonfocal Psychiatric: Mood/affect normal Alertness: Positive: Somnolent (but arousable) Respiratory / Chest: No respiratory distress Extremely tight with minimal air movement and absent wheezing. Interpretation & Diagnostics Lab Results Interpretation Result Diagram: 01/06/17 1020 01/06/17 1020 Test 01/06/17 10:20 01/06/17 11:16 White Blood Count 17.0th/mm3 (3.8-10.1) Red Blood Count 4.39mil/mm3 (3.90-5.20) Hemoglobin 14.1g/dL (12.0-15.6) Hematocrit 41.5% (35.0-46.0) Mean Corpuscular Volume 94.5fL (81-100) Mean Corpuscular Hemoglobin 32.1pg (27.0-35.0) Mean Corpuscular Hemoglobin Concent 34.0% (32.0-37.0) Red Cell Distribution Width 14.1% (12.3-15.4) Platelet Count 247bil/L (150-400) Neutrophils (%) (Auto) 86.3% (40-74) Lymphocytes (%) (Auto) 4.1% (14-46) Monocytes (%) (Auto) 7.9% (4-12) Eosinophils (%) (Auto) 0.6% (0-5) Basophils (%) (Auto) 0.5% (0-3) Sodium Level 129mEq/L (134-144) Potassium Level 4.7mEq/L (3.5-5.2) Chloride Level 88mEq/L (97-108) Carbon Dioxide Level 22mmol/L (18-29) Blood Urea Nitrogen 18mg/dL (8-27) Creatinine 0.93mg/dL (0.57-1.00) Estimat Glomerular Filtration Rate 85mL/min (>59) Glucose Level 357mg/dL (60-99) Lactic Acid Level 1.7mmol/L (0.4-2.0) Calcium Level 9.0mg/dL (8.5-10.1) Magnesium Level 1.5mg/dL (1.6-2.6) Total Bilirubin 0.5mg/dL (0.0-1.2) Aspartate Amino Transf (AST/SGOT) 20U/L (0-50) Alanine Aminotransferase (ALT/SGPT) 13U/L (0-32) Alkaline Phosphatase 137U/L (25-165) Troponin T 0.015ug/L (0.0-0.011) Total Protein 6.5g/dL (6.4-8.4) Albumin 2.9g/dL (3.4-5.0) Lipase 13U/L (13-60) Procalcitonin 0.50ng/mL (0.00-0.08) Urine Color Yellow (YELLOW) Urine Appearance Clear (CLEAR,HAZY) Urine pH 6.0 (5.0-8.0) Urine Specific [place] 1.010 (1.003-1.035) Urine Protein Tracemg/dL (NEG,TRACE) Urine Glucose (UA) 1000mg/dL (NEGATIVE) Urine Ketones 15mg/dL (NEGATIVE) Urine Occult Blood Negative (NEGATIVE) Urine Nitrite Negative (NEGATIVE) Urine Bilirubin Negative (NEGATIVE) Urine Urobilinogen Normalmg/dL (NORMAL) Urine Leukocyte Esterase Negative (NEGATIVE) Urine RBC 0-2/hpf (0-2) Urine WBC 0-5/hpf (0-5) Urine Epithelial Cells Occasional/hpf (NONE-MOD) Urine Crystals None seen (NONE SEEN) Urine Bacteria None/hpf (NONE-FEW) Urine Hyaline Casts None/lpf (NONE) Urine Granular Casts None seen (NONE SEEN) Urine Waxy Casts None seen (NONE SEEN) Urine Red Blood Cell Casts None seen (NONE SEEN) Urine White Blood Cell Casts None seen (NONE SEEN) Urine Mucus None seen (None Seen) Urine Trichomonas None seen (NONE SEEN) Urine Yeast None (NONE SEEN) Urinalysis Comment Transitional epi Urine Culture Reflexed Not indicated ECG Interpretation ECG Interpretation: Sinus tachycardia with a rate of 107 bpm Probable lateral infarct, old Time: 10:40 Interpreted by: ED physician ABG Interpretation ABG Interpretation: 7.341/42/89.7/22.3/-2.8 FCOHb 2.7 FMetHB 0.9 Exam Performed by: [facility] pract X-Ray Chest Interpretation Chest Xray Interpretation: IMPRESSION: Stable appearance of the chest except for what appears to be mild interval worsening of the left lung base pneumonia. At the lateral aspect of the upper lungs bilaterally, at approximately the junction of the middle and upper thirds of the lung parenchyma or areas of asymmetric left greater than right peripheral lung radiodensities that may reflect malignancy. Please also refer to chest CT scanning 01/04/17. Dictated by: Alli Stout M.D. on 01/06/2017 at 10:52 Interpretation / Wet Read by: Interpret - Radiologist Re-Eval/Medical Decision Med Decision/Clinical Course Hypoxic respiratory failure due to pneumonia. Patient placed on vancomycin Zosyn and Levaquin due to immunocompromise due to steroid use and recent hospitalization within 3 months. Pressure has been stable. Lactic acid normal. Patient will be admitted Source of Hx: Old records, Family Time of Eval: 11:14 Re-Evaluation/Progress Note: Rechecked the patient. Discussed results, diagnosis, and plan for admission. All questions were addressed. Consultation : Referral / Consult Name: BrandonTim houser Consulted With: Hospitalist Call Returned at: 12:09 Laborer [place]inking: Will see patient, Agrees with eval, Agrees with plan, Accepts admit Counseled Regarding: Diagnosis, Lab results, Need for admission Discharge & Departure Primary Impression: Pneumonia Pneumonia type: due to unspecified organism Laterality: left Lung location : lower lobe of lung Qualified Code: J18.1 - Lobar pneumonia, unspecified organism Disposition: ADMITTED TO HOSPITAL Discharge Condition All VS Reviewed: Yes Condition: Stable Referrals: NOPCP (PCP) Scribe Attestation Portions of this note were transcribed by Roya Salguero. I, Dr. Arana personally performed the history, physical exam and medical decision-making; I reviewed and confirmed the accuracy of the information in the transcribed note. Signed by: Gerson Clark, 01/06/2017 at 1215. Elton Arana DO January 06, 2017 10:08 Roya Salguero January 06, 2017 10:15
[2017-01-06] MEDS ORDERED: 0.9% Sodium Chloride 1,000 ML IV ONE (10:13)
[2017-01-06] MEDS ORDERED: Albuterol 2.5 mg/3 mL Inhalation Solution NEB ONE (10:15)
[2017-01-06] MEDS ORDERED: Hydrocortisone 50 mg/mL 2 mL Inj IVPUSH ONE (10:15)
[2017-01-06 10:49] LABS: MONOCYTES % (AUTO) 7.9 % (4-12)
[2017-01-06 10:54] LABS: BASOPHILS % (AUTO) 0.5 % (0-3); EOSINOPHILS % (AUTO) 0.6 % (0-5); Mean Corpuscular Hemoglobin 32.1 pg (27.0-35.0); Mean Corpuscular Volume 94.5 fL (81-100); NEUTROPHILS % (AUTO) 86.3 % (40-74); Platelet Count 247 bil/L (150-400)
--- NOTE | 2017-01-06 10:57 | DRSVH ---
PROCEDURE: X-RAY CHEST ONE VIEW, PORTABLE ([id number]) INDICATIONS: hypoxia, fever TECHNIQUE: One view of the chest was acquired. COMPARISON: [facility], CR, XR CHEST 1VW (PORTABLE), 01/04/2017, 9:52. [facility], CR, XR CHEST 2VW, 11/12/2016, 13:45. FINDINGS: Surgical changes and devices: Surgical clips each breast, and in the epigastrium.. Lungs and pleura: No pleural effusions or pneumothorax. Lungs are again seen to be abnormal, but wi th what appears to be a slight worsening of a bony pattern at the left lower lobe. There is focal sc arring or mass at the lateral left upper lung and at a similar axial level to a lesser degree at the lateral right upper lung. Mediastinum: Mediastinal contours appear normal. Heart size is normal. Bones and chest wall: No suspicious bony lesions. Overlying soft tissues appear unremarkable. IMPRESSION: Stable appearance of the chest except for what appears to be mild interval worsening of t he left lung base pneumonia. At the lateral aspect of the upper lungs bilaterally, at approximately the junction of the middle and upper thirds of the lung parenchyma or areas of asymmetric left greate r than right peripheral lung radiodensities that may reflect malignancy. Please also refer to chest CT scanning 01/04/17. Dictated by: Alli Stout M.D. on 01/06/2017 at 10:52 Approved by: Alli Stout M.D. on 01/06/2017 at 10:55
[2017-01-06] MEDS ORDERED: Piperacillin-Tazo 3.375 Gm Inj 3.375 GM in Dextrose 5% Minibag Plus 50 ML IV ONE (11:25)
[2017-01-06] MEDS ORDERED: levoFLOXacin Inj 750 MG in IV Premix 1 EACH IV ONE (11:25)
--- NOTE | 2017-01-06 11:35 | ABG ---
DateTimeAnalyzed 11:30:00 -_ pH ____7.341 - 7.350 7.450 pCO2 ___42.4__ -mmHg 35.0 45.0 pO2 ___89.7__ -mmHg 69.0 116 HCO3- ___22.3__ -mmol/L 22.0 26.0 ABE ___-2.8__ -mmol/L -2.0 2.0 tHb ___12.5__ -g/dL O2Hb ___93.8__ -% COHb ____2.7__ -% MetHb ____0.9__ -% sO2 ___97.3__ -% FIO2 ___28.0__ -% Drawn By as - Date/Time Notified____ 11:35:00 -_ Spontaneous_RR ___20.0__ -b/min Liter_Flow ____2.0__ -L/min Oxygen Device 1 __CANNULA - Notified By AMS - Notified Whom DR OKELLY - B 755 -mmHg tO2 ___16.6__ -Vol% Rafi test _Positive -
[2017-01-06 11:48] LABS: APPEARANCE,URINE CLEAR (CLEAR,HAZY); COLOR,URINE YELLOW (YELLOW)
[2017-01-06 11:49] LABS: OCCULT BLOOD,URINE NEGATIVE (NEGATIVE); UROBILINOGEN,URINE NORMAL (NORMAL)
--- NOTE | 2017-01-06 11:52 | PCM.CONPHA ---
Subjective Date of Service: January 06, 2017 Reason for Pharmacy Consult: Vancomycin Dosing Objective Vital Signs Date Time Temp Pulse Resp B/P Pulse Ox O2 Delivery O2 Flow Rate FiO2 01/06/17 11:08 37.2 104 17 117/47 93 Nasal Cannula 2 01/06/17 10:37 106 20 97 Nasal Cannula 4 01/06/17 10:02 38.4 79 18 121/68 82 Room Air Weight (Kilograms): 72.73 Height (Feet): 5 Height (Inches): 4 Test 01/06/17 10:20 01/06/17 11:16 White Blood Count 17.0th/mm3 (3.8-10.1) Red Blood Count 4.39mil/mm3 (3.90-5.20) Hemoglobin 14.1g/dL (12.0-15.6) Hematocrit 41.5% (35.0-46.0) Mean Corpuscular Volume 94.5fL (81-100) Mean Corpuscular Hemoglobin 32.1pg (27.0-35.0) Mean Corpuscular Hemoglobin Concent 34.0% (32.0-37.0) Red Cell Distribution Width 14.1% (12.3-15.4) Platelet Count 247bil/L (150-400) Neutrophils (%) (Auto) 86.3% (40-74) Lymphocytes (%) (Auto) 4.1% (14-46) Monocytes (%) (Auto) 7.9% (4-12) Eosinophils (%) (Auto) 0.6% (0-5) Basophils (%) (Auto) 0.5% (0-3) Lactic Acid Level 1.7mmol/L (0.4-2.0) Urine Color Yellow (YELLOW) Urine Appearance Clear (CLEAR,HAZY) Urine pH 6.0 (5.0-8.0) Urine Specific [place] 1.010 (1.003-1.035) Urine Protein Tracemg/dL (NEG,TRACE) Urine Glucose (UA) 1000mg/dL (NEGATIVE) Urine Ketones 15mg/dL (NEGATIVE) Urine Occult Blood Negative (NEGATIVE) Urine Nitrite Negative (NEGATIVE) Urine Bilirubin Negative (NEGATIVE) Urine Urobilinogen Normalmg/dL (NORMAL) Urine Leukocyte Esterase Negative (NEGATIVE) Urine RBC 0-2/hpf (0-2) Urine WBC 0-5/hpf (0-5) Urine Epithelial Cells Occasional/hpf (NONE-MOD) Urine Crystals None seen (NONE SEEN) Urine Bacteria None/hpf (NONE-FEW) Urine Hyaline Casts None/lpf (NONE) Urine Granular Casts None seen (NONE SEEN) Urine Waxy Casts None seen (NONE SEEN) Urine Red Blood Cell Casts None seen (NONE SEEN) Urine White Blood Cell Casts None seen (NONE SEEN) Urine Mucus None seen (None Seen) Urine Trichomonas None seen (NONE SEEN) Urine Yeast None (NONE SEEN) Urinalysis Comment Transitional epi Urine Culture Reflexed Not indicated Assessment/Plan Assessment/Plan Pt is a 71yo female presenting with generalized weakness starting empiric antibiotics. Pt has also received one time doses of pip/tazo and levofloxacin. Labs as above. Will give pt a one time dose of vancomycin 1250mg IV loading dose. Further orders if continued upon admission. Brooklynn Miller PharmD January 06, 2017 11:52
[2017-01-06] MEDS ORDERED: Vancomycin Inj 1,250 MG in 0.9% Sodium Chloride 250 ML IV ONE (11:55)
[2017-01-06 12:02] LABS: TROPONIN T 0.015 ug/L (0.0-0.011)
[2017-01-06] MEDS ORDERED: Ondansetron 2 mg/mL 2 mL Inj IVPUSH PRN ×2 (12:10→17:20)
[2017-01-06] MEDS ORDERED: Alum-Mag Hydrox-Simeth 30 mL Suspension PO PRN ×2 (12:10→17:20)
[2017-01-06] MEDS ORDERED: 0.9% Sodium Chloride 1,000 ML IV SCH (12:10)
[2017-01-06 12:17] LABS: Magnesium 1.5 mg/dL (1.6-2.6)
[2017-01-06] MEDS ORDERED: INSU100V7 SUBQ (12:52)
[2017-01-06] MEDS ORDERED: Clobetasol Prop 0.05% 15 Gm Ointment TOPICAL PRN (17:10)
[2017-01-06] MEDS ORDERED: Dextrose 10% 250 ML IV PRN (17:15)
[2017-01-06] MEDS: 0.9% Sodium Chloride 1,000 ML IV SCH (17:15)
[2017-01-06] MEDS ORDERED: Polyethylene Glycol (PEG) 17 Gm Powder PO PRN (17:20)
--- NOTE | 2017-01-06 17:33 | PCM.HPMED ---
Subjective Date of Service January 06, 2017 Primary Provider: Admitting Physician: Tim Ortega Primary Care Physician: Other,Physician Attending Physician: Tim Ortega Chief Complaint: weakness, chest pain likely prior pneumonias, vomiting History of Present Illness: 71 year old female with history of diabetes mellitus, and cancers of the kidney , adrenal glands, lung, breast and skin (all presumably in remission) and current epiglottal cancer diagnosed just one week ago presents with complaint of generalized weakness, vomiting, and chest discomfort for the past 4-5 days similar to her prior episodes of pneumonia. She was seen at our ED on 01/04 at which time underwent a CT of her chest and despite questionable pneumonia was discharged home without further treatment. Today she says she was acting confused and somnolent and so her daughter apparently brought her to the hospital again. Currently she says she feels better than earlier today. She says she has chronic shortness of breath that is not any worse than usual. She has been vomiting almost daily since her epiglottal biopsy last week. In the ED she received broad spectrum antibiotics for presumed HCAP. Review of Systems: Constitutional: Negative, except as otherwise mentioned in the history above. Ophthalmologic: Negative, except as otherwise mentioned in the history above. Cardiovascular: Negative, except as otherwise mentioned in the history above. Respiratory: Negative, except as otherwise mentioned in the history above. Gastrointestinal: Negative, except as otherwise mentioned in the history above. Genitourinary: Negative, except as otherwise mentioned in the history above. Musculoskeletal: Negative, except as otherwise mentioned in the history above. Neurological: Negative, except as otherwise mentioned in the history above. Psychiatric: Negative, except as otherwise mentioned in the history above. Hematologic/Lymphatic: Negative, except as otherwise mentioned in the history above. Allergic/Immunologic: Negative, except as otherwise mentioned in the history above. Allergies Coded Allergies: hexachlorophene (Verified Allergy, Unknown, 11/12/16) prednisone (Verified Adverse Reaction, Intermediate, MAKES ME SICK, ) Home Medications Scheduled Ascorbic Acid (Vitamin C) 250 Mg Tab.chew 500 MG PO DAILY Citalopram (Citalopram) 40 Mg Tablet 40 MG PO DAILY Ezetimibe (Ezetimibe) 10 Mg Tablet 10 MG PO QAM Gabapentin (Gabapentin) 600 Mg Tablet 600 MG PO HS Insulin Glargine (Lantus U100 Insulin Vial) 100 Unit/Ml Vial 35 UNIT SUBQ HS Insulin Human Lispro (HumaLOG U100 Insulin Vial) 100 Unit/Ml Unit 15 UNIT SUBQ TIDAC Check blood sugars before meals and at bedtime. Use correction factor only before meals. Blood Sugar Lispro Correction: <151, 0 units; 151-175, 1 unit; 176-200, 2 units; 201-225, 3 units; 226-250, 4 units; 251-275, 5 units; 276-300 , 6 units; 301-325, 7 units; 326-350, 8 units; 351-375, 9 units; 376-400, 10 units; >400, 12 units. Lactobac Cmb #3/Fos/Pantethine (Probiotic & Acidophilus Cap) 1 Each Capsule 1 EACH PO DAILY Morphine Sulfate (Morphine Sulfate) 15 Mg Tablet 15 MG PO QID Omeprazole (Omeprazole) 20 Mg Capsule.dr 20 MG PO DAILY Prednisolone Sod Phosphate (Prednisolone Sodium Phosphate) 15 Mg/5 Ml Solution 20 MG PO QAM Sulfamethoxazole/Trimeth 400-80 mg (Bactrim 400-80 mg) 1 Each Tablet 1 TABLET PO DAILY Scheduled PRN Clobetasol Propionate (Clobetasol Propionate) 15 Gm Oint...g. 1 APPLIC TP BID PRN PRN RASH Loperamide (Loperamide) 2 Mg Capsule 2 MG PO Q4H PRN PRN For Diarrhea or Loose Stool Ondansetron ODT (Zofran ODT) 4 Mg Tablet 4 MG PO Q4H PRN PRN For Nausea Exam Vital Signs & I/O Vital Sign- Last 8 Hours Date Time Temp Pulse Resp B/P Pulse Ox O2 Delivery O2 Flow Rate FiO2 01/06/17 13:21 95 01/06/17 12:44 36.8 95 20 90/54 92 Nasal Cannula 2.00 01/06/17 12:20 101 18 139/67 92 Nasal Cannula 2 01/06/17 11:08 37.2 104 17 117/47 93 Nasal Cannula 2 01/06/17 10:37 106 20 97 Nasal Cannula 4 01/06/17 10:02 38.4 79 18 121/68 82 Room Air Lab & Micro Results Laboratory Tests Test 01/06/17 10:20 01/06/17 11:16 White Blood Count 17.0th/mm3 (3.8-10.1) Red Blood Count 4.39mil/mm3 (3.90-5.20) Hemoglobin 14.1g/dL (12.0-15.6) Hematocrit 41.5% (35.0-46.0) Mean Corpuscular Volume 94.5fL (81-100) Mean Corpuscular Hemoglobin 32.1pg (27.0-35.0) Mean Corpuscular Hemoglobin Concent 34.0% (32.0-37.0) Red Cell Distribution Width 14.1% (12.3-15.4) Platelet Count 247bil/L (150-400) Neutrophils (%) (Auto) 86.3% (40-74) Lymphocytes (%) (Auto) 4.1% (14-46) Monocytes (%) (Auto) 7.9% (4-12) Eosinophils (%) (Auto) 0.6% (0-5) Basophils (%) (Auto) 0.5% (0-3) Sodium Level 129mEq/L (134-144) Potassium Level 4.7mEq/L (3.5-5.2) Chloride Level 88mEq/L (97-108) Carbon Dioxide Level 22mmol/L (18-29) Blood Urea Nitrogen 18mg/dL (8-27) Creatinine 0.93mg/dL (0.57-1.00) Estimat Glomerular Filtration Rate 85mL/min (>59) Glucose Level 357mg/dL (60-99) Lactic Acid Level 1.7mmol/L (0.4-2.0) Calcium Level 9.0mg/dL (8.5-10.1) Magnesium Level 1.5mg/dL (1.6-2.6) Total Bilirubin 0.5mg/dL (0.0-1.2) Aspartate Amino Transf (AST/SGOT) 20U/L (0-50) Alanine Aminotransferase (ALT/SGPT) 13U/L (0-32) Alkaline Phosphatase 137U/L (25-165) Troponin T 0.015ug/L (0.0-0.011) Total Protein 6.5g/dL (6.4-8.4) Albumin 2.9g/dL (3.4-5.0) Lipase 13U/L (13-60) Procalcitonin 0.50ng/mL (0.00-0.08) Urine Color Yellow (YELLOW) Urine Appearance Clear (CLEAR,HAZY) Urine pH 6.0 (5.0-8.0) Urine Specific [place] 1.010 (1.003-1.035) Urine Protein Tracemg/dL (NEG,TRACE) Urine Glucose (UA) 1000mg/dL (NEGATIVE) Urine Ketones 15mg/dL (NEGATIVE) Urine Occult Blood Negative (NEGATIVE) Urine Nitrite Negative (NEGATIVE) Urine Bilirubin Negative (NEGATIVE) Urine Urobilinogen Normalmg/dL (NORMAL) Urine Leukocyte Esterase Negative (NEGATIVE) Urine RBC 0-2/hpf (0-2) Urine WBC 0-5/hpf (0-5) Urine Epithelial Cells Occasional/hpf (NONE-MOD) Urine Crystals None seen (NONE SEEN) Urine Bacteria None/hpf (NONE-FEW) Urine Hyaline Casts None/lpf (NONE) Urine Granular Casts None seen (NONE SEEN) Urine Waxy Casts None seen (NONE SEEN) Urine Red Blood Cell Casts None seen (NONE SEEN) Urine White Blood Cell Casts None seen (NONE SEEN) Urine Mucus None seen (None Seen) Urine Trichomonas None seen (NONE SEEN) Urine Yeast None (NONE SEEN) Urinalysis Comment Transitional epi Urine Culture Reflexed Not indicated Microbiology 01/06/17 Blood Culture, Received Pending 01/06/17 Adenovirus DNA (PCR) - Final, Complete Not Detected 01/06/17 Coronavirus 229E PCR - Final, Complete Not Detected 01/06/17 Coronavirus HKU1 PCR - Final, Complete Not Detected 01/06/17 Coronavirus NL63 PCR - Final, Complete Not Detected 01/06/17 Coronavirus OC43 PCR - Final, Complete Not Detected 01/06/17 Influenza Type A (PCR) - Final, Complete Not Detected 01/06/17 Influenza Type B (PCR) - Final, Complete Not Detected 01/06/17 Human Metapneumovirus (PCR) (МАРИНА) - Final, Complete Not Detected 01/06/17 Rhinovirus (PCR)(МАРИНА) - Final, Complete Not Detected 01/06/17 Parainfluenza Virus Type 1 (PCR) - Final, Complete Not Detected 01/06/17 Parainfluenza Virus Type 2 (PCR) - Final, Complete Not Detected 01/06/17 Parainfluenza Virus Type 3 (PCR) - Final, Complete Not Detected 01/06/17 Parainfluenza Virus Type 4 (NAAT) - Final, Complete Not Detected 01/06/17 Respiratory Syncytial Virus (PCR)[place] - Final, Complete Not Detected 01/06/17 Chlamydia pneumoniae (PCR) - Final, Complete Not Detected 01/06/17 Mycoplasma pneumoniae DNA Detection - Final, Complete Result Diagram: 01/06/17 1020 01/06/17 1020 PMH 1. Kidney cancer, adrenal cancer, lung cancer, breast cancer, skin cancer ( presumably in remission) 2. Diabetes Mellitus, Type II 3. Tobacco Use Disorder 4. COPD 5. Epiglottal cancer diagnosed about one week ago and to be followed by Dr. Mcgowan Surgical History breast, kidney, adrenal Reports: Cholecystectomy Family History Pt reports a history of heart disease in her mother and maternal uncle. Social History Hx Alcohol Use: No Hx Substance Use: No Hx Tobacco Use: Yes Smoking Status: Current Every Day Smoker (1 ppd) Exam Vital Signs Vital Sign - Last Date Time Temp Pulse Resp B/P Pulse Ox O2 Delivery O2 Flow Rate FiO2 01/06/17 13:21 95 01/06/17 12:44 36.8 20 90/54 92 Nasal Cannula 2.00 General: Alert, Oriented X3, Cooperative, No Acute Distress Head: Normal Eyes: PERRLA, EOMI, Scleral Anicteric Nose: Mucous Membr Moist/[place] Mouth: Mucous Membr Moist/[place] Neck: Supple Chest & Lungs: Chest Wall Normal, Coarse breath sounds (bibasilar) Cardiovascular: Regular Rate/Rhythm Pulses: NL carotid, radial, femoral, DP, PT Abdomen: Non-tender, Non-distended, Normoactive bowel tones, Soft Extremities: No cyanosis/clubbing/edma bilat Skin: Other (no ulcer/rash) Neurological: Grossly Neurologically Intact, Cranial Nerves 2-12 Intact, Normal Speech, Strength Normal 4/4 ext Lymphatic: Other Lymph Nodes (no significant lymphadenopathy) Lab and Diagnostics Result Diagram: 01/06/17 1020 01/06/17 1020 X-Rays, CTs and MRIs Date of Service: 01/06/17 1013 PROCEDURE: X-RAY CHEST ONE VIEW, PORTABLE ([id number]) IMPRESSION: Stable appearance of the chest except for what appears to be mild interval worsening of the left lung base pneumonia. At the lateral aspect of the upper lungs bilaterally, at approximately the junction of the middle and upper thirds of the lung parenchyma or areas of asymmetric left greater than right peripheral lung radiodensities that may reflect malignancy. Please also refer to chest CT scanning 01/04/17. Dictated by: Alli Stout M.D. on 01/06/2017 at 10:52 Approved by: Alli Stout M.D. on 01/06/2017 at 10:55 Assessment & Plan 71 year old female with history of diabetes mellitus, and cancers of the kidney , adrenal glands, lung, breast and skin (all presumably in remission) and current epiglottal cancer diagnosed just one week ago presents with complaint of generalized weakness, vomiting, and chest discomfort for the past 4-5 days similar to her prior episodes of pneumonia. # Acute pneumonia. present on admission. - Given almost daily vomiting for past several day suspect this to be more likely aspiration pneumonia than healthcare associated - Start IV Unasyn - Check sputum culture - If clinically deteriorate may consider broadening the antibiotics then - Followup pending blood cultures # Nausea with Vomiting, present on admission. - Secondary to above - Start Normal Saline IV at 100 mL/hour - IV Zofran 4-8 mg q 6 hours PRN # Acute Dehydration, present on admission - Secondary to above - Continue rehydration with IV fluids - Check BMP in AM # COPD, stable - Not in acute exacerbation - Continue with home meds - Nebs prn # Diabetes Mellitus, Type II - Check HgbA1c - Check FSBS q AC and HS - Start low dose SSI now - Continue with home dose Lantus # Tobacco Use Disorder - Nicotine patch PRN - Patient advised about quitting # Recent diagnosis of epiglottal cancer - Scheduled to followup with oncology on the # Acute hyponatremia. present on admission - 2ndry to dehydration - IVF and followup # Acute hypomagnesemia - Replete and followup # Mildly elevated Trop - Does report some CP earlier. Suspect more likely due to stress of vomiting and demand ischemia as opposed to [place] - Check EKG - Repeat Trop in am - Consider Echo if further CP or significant rising Trop Expected length of hospital stay is greater than 2 midnights and likely 2-3 days GI Prophylaxis: Proton Pump Inhibitor VTE Mechanical Devices: Venous Foot Pump Resuscitation Status: CPR: Attempt Resuscitation (discussed and verified with patient) Time spent 60 min Tim Ortega January 06, 2017 17:33
[2017-01-06] MEDS ORDERED: Albuterol-Ipratropium 3 mL Inhalation Solution NEB PRN (17:50)
[2017-01-06] MEDS ORDERED: Magnesium Sulf 2 Gm/50mL Water 2 GM in IV Premix 1 EACH IV ONE (17:50)
--- NOTE | 2017-01-06 20:03 | PCM.ADCARE ---
Advance Care Planning Note Purpose of Encounter: Goals of care Parties in Attendance: patient Decisional Capacity: decisional Subjective: shortness of breath and vomiting Objective: General: Alert, Oriented X3, Cooperative, No Acute Distress Head: Normal Eyes: PERRLA, EOMI, Scleral Anicteric Nose: Mucous Membr Moist/[place] Mouth: Mucous Membr Moist/[place] Neck: Supple Chest & Lungs: Chest Wall Normal, Coarse breath sounds (bibasilar) Cardiovascular: Regular Rate/Rhythm Pulses: NL carotid, radial, femoral, DP, PT Abdomen: Non-tender, Non-distended, Normoactive bowel tones, Soft Extremities: No cyanosis/clubbing/edma bilat Skin: Other (no ulcer/rash) Neurological: Grossly Neurologically Intact, Cranial Nerves 2-12 Intact, Normal Speech, Strength Normal 4/4 ext Lymphatic: Other Lymph Nodes (no significant lymphadenopathy) Goals of Care Determinations: patient hopes to treat this current pneumonia and looks forward to meeting her oncologist next week and is hopeful that she will beat yet another cancer Plan: Continue with current treatment and goal of returning to current living arrangement at home CODE STATUS: Full Code Time Spent Adv.Care Plannin min Tim Ortega January 06, 2017 20:03
[2017-01-06] MEDS: Insulin GLARgine 100 Unit/mL Syringe SUBQ SCH (20:13)
[2017-01-06] MEDS ORDERED: Insulin LISPRO 300 Unit/3 mL Inj SUBQ ONE (20:45)
[2017-01-06] MEDS: Ampicillin-Sulbactam Inj 3,000 MG in 0.9% Sodium Chloride 100 ML IV SCH (21:24)
[2017-01-06] MEDS: Insulin Human REGular 300 Unit/3 mL Inj SUBQ SCH (22:47)
[2017-01-07] MEDS: Heparin 5,000 Unit/mL Inj SUBQ SCH ×3 (00:26→16:42)
[2017-01-07] MEDS: Ampicillin-Sulbactam Inj 3,000 MG in 0.9% Sodium Chloride 100 ML IV SCH ×4 (03:07→21:38)
[2017-01-07 03:09] VITALS: BP 113/55; PULSE 90; RESP 18; O2SAT 91
[2017-01-07] MEDS: 0.9% Sodium Chloride 1,000 ML IV SCH ×2 (03:11→09:58)
[2017-01-07] MEDS: Insulin Human REGular 300 Unit/3 mL Inj SUBQ SCH ×3 (03:24→21:54)
[2017-01-07 05:43] VITALS: PULSE 91
[2017-01-07 06:19] LABS: BASOPHILS % (AUTO) 0.1 % (0-3); EOSINOPHILS % (AUTO) 0.1 % (0-5); Mean Corpuscular Hemoglobin 31.6 pg (27.0-35.0); Mean Corpuscular Volume 92.7 fL (81-100); NEUTROPHILS % (AUTO) 84.4 % (40-74); Platelet Count 224 bil/L (150-400)
[2017-01-07] MEDS: Pantoprazole 40 mg ER24 Tablet PO SCH (06:29)
[2017-01-07 06:33] LABS: TROPONIN T 0.01 ug/L (0.0-0.011)
[2017-01-07] MEDS: Insulin LISPRO 300 Unit/3 mL Inj SUBQ SCH ×3 (07:30→16:42)
[2017-01-07 08:00] VITALS: PULSE 79
[2017-01-07] MEDS: PrednisoLONE 3 mg/mL 237 mL Oral Liquid PO SCH (08:22)
[2017-01-07] MEDS ORDERED: Vancomycin Dose per Pharmacist XX SCH (08:30)
[2017-01-07 09:31] VITALS: BP 113/66; PULSE 91; RESP 18; O2SAT 92
[2017-01-07] MEDS ORDERED: Insulin Human REGular 300 Unit/3 mL Inj SUBQ SCH ×3 (11:30→19:30)
--- NOTE | 2017-01-07 13:35 | DRSVH ---
PROCEDURE: X-RAY BARIUM SWALLOW WITH FOOD & VIDEOGRAPHY ([id number]) INDICATIONS: concern for possible aspiration TECHNIQUE: Examination was conducted in conjunction with speech pathology per standard protocol. In the lateral projection, filming was performed of the patient swallowing. AP projection filming may also be performed with patient swallowing. COMPARISON: None. FINDINGS: Function: The oral preparatory phase appears normal, with proper containment. The subsequent oral pr opulsive phase, pharyngeal phase, and esophageal phase of swallowing also appear normal with all prof fered substances. Laryngeal penetration noted with thin liquids. No pathologic vallecular pooling. The attending physician was personally present in the room during the examination. Morphology: No cricopharyngeal bar is identified. No cervical esophageal webs. No Zenker's diverti culum. No strictures. IMPRESSION: Laryngeal penetration. Dictated by: Lisandro GAMBOA Interpreted: Олег Lopez MD on 01/07/2017 at 13:33 Transcribed by: NADINE on 01/07/2017 at 13:34 Approved by: Олег Lopez M.D. on 01/07/2017 at 15:40
--- NOTE | 2017-01-07 15:24 | PCM.PNMED ---
Subjective Date of Service Jan 07, 2017 Subjective Feeling much better. Did not even know where I was yesterday. Denies dyspnea, has a cough, no chest pain, no nausea or vomiting Exam Vital Signs Vital Sign - Last Date Time Temp Pulse Resp B/P Pulse Ox O2 Delivery O2 Flow Rate FiO2 01/07/17 09:31 37.1 91 18 113/66 92 Room Air 01/06/17 12:44 2.00 Intake and Output 01/06/17 01/06/17 01/07/17 Cumulative From/Thru 15:00 23:00 07:00 01/06/17 10:02 - 01/07/17 05:24 Intake Total 1000 ml 450 ml 1450 ml Output Total 1075 ml 1075 ml Balance 1000 ml -625 ml 375 ml Intake Oral 450 ml 450 ml IV Total 1000 ml 1000 ml Output Urine Total 1075 ml 1075 ml # Bowel Movements 0 0 Exam Gen.- A+ O 3 no apparent distress. Sitting up at bedside Eyes- open conjunctiva clear, pupils equal nonicteric Mouth- oral mucosa moist, no exudate ENT- ears normal, nose normal Neck- supple/trach midline CVS- RRR no murmur or gallop Lungs CTA subtle left basilar crackles GI- NABS/NT soft Musc- moving 4 no obvious deformity Neuro- cranial nerves II through XII intact to gross examination, nonfocal Skin- warm and dry, no rashes/lesions/wounds noted Psych- pleasant and appropriate, Lab and Diagnostics Result Diagram: 01/07/17 0545 01/07/17 0545 X-Rays, CTs and MRIs Date of Service: 01/06/17 1013 PROCEDURE: X-RAY CHEST ONE VIEW, PORTABLE ([id number]) IMPRESSION: Stable appearance of the chest except for what appears to be mild interval worsening of the left lung base pneumonia. At the lateral aspect of the upper lungs bilaterally, at approximately the junction of the middle and upper thirds of the lung parenchyma or areas of asymmetric left greater than right peripheral lung radiodensities that may reflect malignancy. Please also refer to chest CT scanning 01/04/17. Dictated by: Alli Stout M.D. on 01/06/2017 at 10:52 Approved by: Alli Stout M.D. on 01/06/2017 at 10:55 Assessment & Plan 71 year old female admitted 01/06 acute dyspnea/respiratory failure/leukocytosis presents with complaint of generalized weakness, vomiting, and chest discomfort for the past 4-5 days similar to her prior episodes of pneumonia. 01/07 first time eating medically complex patient. She is looking much better. To adjust insulin for steroids, following electrolytes. Cardiac enzymes resolved likely stress leak no further action. #Dysphagia as noted by swallow eval, speech following # Acute pneumonia/COPD exacerbation. ? Aspiration with daily vomiting? - Start IV Unasyn -Swallow evaluation shows laryngeal penetration 01/07 # Nausea with Vomiting, present on admission. - Secondary to above - Start Normal Saline IV at 100 mL/hour - IV Zofran 4-8 mg q 6 hours PRN # Diabetes Mellitus, Type II/hyperglycemia exacerbated by steroids - Check HgbA1c - Check FSBS q AC and HS - Continue with home dose Lantus -Increase sliding scale to 3 150-200,6 201-250,9 251-300,12 301-350, 15U >350 repeat 2hrs # Tobacco Use Disorder - Nicotine patch PRN - Patient advised about quitting # Recent diagnosis of epiglottal cancer- Scheduled to followup with oncology on the # Mildly elevated Trop-resolved # Acute Dehydration/hyponatremia/magnesemia, corrected GI Prophylaxis: Proton Pump Inhibitor VTE Mechanical Devices: Venous Foot Pump Resuscitation Status: CPR: Attempt Resuscitation (discussed and verified with patient) Neftali Arrieta MD Jan 07, 2017 15:24 - Consider Echo if further CP or significant rising Trop Expected length of hospital stay is greater than 2 midnights and likely 2-3 days GI Prophylaxis: Proton Pump Inhibitor VTE Mechanical Devices: Venous Foot Pump Resuscitation Status: CPR: Attempt Resuscitation (discussed and verified with patient) Neftali Arrieta MD Jan 07, 2017 15:24
[2017-01-07 17:45] VITALS: BP 134/59; PULSE 88; RESP 18; O2SAT 91
[2017-01-07 20:49] VITALS: BP 138/67; PULSE 91; RESP 18; O2SAT 94
[2017-01-07] MEDS: Insulin GLARgine 100 Unit/mL Syringe SUBQ SCH (21:38)
[2017-01-08] MEDS: Heparin 5,000 Unit/mL Inj SUBQ SCH ×2 (00:44→09:16)
[2017-01-08] MEDS: Ampicillin-Sulbactam Inj 3,000 MG in 0.9% Sodium Chloride 100 ML IV SCH ×2 (02:45→09:00)
[2017-01-08 05:52] VITALS: BP 114/68; PULSE 82; RESP 17; O2SAT 90
[2017-01-08] MEDS: Pantoprazole 40 mg ER24 Tablet PO SCH (06:20)
[2017-01-08] MEDS: Insulin LISPRO 300 Unit/3 mL Inj SUBQ SCH ×2 (08:59→12:46)
[2017-01-08] MEDS: PrednisoLONE 3 mg/mL 237 mL Oral Liquid PO SCH (09:10)
[2017-01-08] MEDS: Insulin Human REGular 300 Unit/3 mL Inj SUBQ SCH (09:30)
--- NOTE | 2017-01-08 13:26 | PCM.DIMED ---
Discharge Instructions Date of Service Jan 08, 2017 Dates of Hospitalization January 06, 2017 at 12:19 Discharge Diagnosis Discharge Diagnosis Sepsis, aspiration pneumonia, dysphagia from cancer of the epiglottis Diet Discharge Diet: Heart Healthy, Other (thicken liquids as per speech) Activity Discharge Activity: No restrictions Call your provider Call your provider for: Shortness of breath Patient Instructions Patient Instructions Finish course of antibiotics and be vigilant for symptoms of aspiration and pneumonia because of shortness of breath and if at all possible quit smoking Follow-up plan Needs a referral to gastroenterology and follow-up with PCP DEANDRE Follow-up Provider: Yovani Gottlieb MD Follow-up with PCP in: 1 week Provider: Deshawn Mcgowan Andris E MD Jan 08, 2017 13:25
[2017-01-08] MEDS ORDERED: AMOX250S70 PO (13:41)
[2017-01-08] MEDS ORDERED: [UNRECOGNIZED DRUG - CODE] PO (13:41)
[2017-01-08] MEDS ORDERED: NICO1PAT6 TOPICAL (13:41)
[2017-01-08 14:02] VITALS: BP 128/65; PULSE 90; RESP 18; O2SAT 91
--- NOTE | 2017-01-08 14:03 | PCM.DC.MED ---
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 Dictated by: Lisandro Rios RR Interpreted: Олег Lopez MD on 01/07/2017 at 13:33 PROCEDURE: X-RAY CHEST ONE VIEW, PORTABLE: Alli Stout M.D. on 01/06/2017 at 10:55 IMPRESSION: Stable appearance of the chest except for what appears to be mild interval worsening of the left lung base pneumonia. At the lateral aspect of the upper lungs bilaterally, at approximately the junction of the middle and upper thirds of the lung parenchyma or areas of asymmetric left greater than right peripheral lung radiodensities that may reflect malignancy. Please also refer to chest CT scanning 01/04/17. Dictated by: Alli Stout M.D. on 01/06/2017 at 10:52 Approved by: Alli Stout M.D. on 01/06/2017 at 10:55 ECG 12 Lead EKG date 01/06 Rate 107, QTC 447 ms personally reviewed by Berny 01/08 . Sinus tachycardia . Probable lateral infarct, old Brief History 71 year old female with history of diabetes mellitus, and cancers of the kidney , adrenal glands, lung, breast and skin (all presumably in remission) and current epiglottal cancer diagnosed just one week ago presents with complaint of generalized weakness, vomiting, and chest discomfort for the past 4-5 days similar to her prior episodes of pneumonia. She was seen at our ED on 01/04 at which time underwent a CT of her chest and despite questionable pneumonia was discharged home without further treatment. Today she says she was acting confused and somnolent and so her daughter apparently brought her to the hospital again. Currently she says she feels better than earlier today. She says she has chronic shortness of breath that is not any worse than usual. She has been vomiting almost daily since her epiglottal biopsy last week. In the ED she received broad spectrum antibiotics for presumed HCAP. Hospital Course 71 year old female admitted 01/06 acute dyspnea/respiratory failure/leukocytosis presents with complaint of generalized weakness, vomiting, and chest discomfort for the past 4-5 days similar to her prior episodes of pneumonia. 01/07 first time eating medically complex patient. She is looking much better. To adjust insulin for steroids, following electrolytes. Cardiac enzymes resolved likely stress leak no further action. 01/08 patient discharged she has done well that are than expected given her presentation with sepsis. She was worried little bit because she felt like she was hallucinating this morning but seems fairly lucid and coherent now. She wants to be taught how to use Thick-It, understand she needs to see a maintenance technician which we are giving a referral for it is okay to do as outpatient. I spoke with her granddaughter who seems agreeable to taking the patient home as long as the patient is better at listening and coming to see the doctor in the future which she had not done. #Dysphagia as noted by swallow eval, speech following, patient now on Thick-It getting home health -Outpatient referral to GI on discharge # Acute pneumonia/COPD exacerbation. ? Aspiration with daily vomiting?-5 day course of Augmentin - Unasyn 01/06-01/08 complaining 5 more days of Augmentin -Swallow evaluation shows laryngeal penetration 01/07 # Nausea with Vomiting, present on admission. -Resolved - Secondary to above - Start Normal Saline IV at 100 mL/hour - IV Zofran 4-8 mg q 6 hours PRN # Diabetes Mellitus, Type II/hyperglycemia exacerbated by steroids - HgbA1c 9.4 01/06 - Check FSBS q AC and HS blood sugars have run 120-140 on current regimen being mirrored on discharge # Tobacco Use Disorder - Nicotine patch PRN - Patient advised about quitting # Recent diagnosis of epiglottal cancer- Scheduled to followup with oncology on the # Mildly elevated Trop-resolved # Acute Dehydration/hyponatremia/magnesemia, corrected Exam Vital Signs (Last) Date Time Temp Pulse Resp B/P Pulse Ox O2 Delivery O2 Flow Rate FiO2 01/08/17 05:52 36.6 82 17 114/68 90 Room Air 01/06/17 12:44 2.00 Exam Gen.- A+ O 3 no apparent distress. Sitting up at bedside Eyes- open conjunctiva clear, pupils equal nonicteric Mouth- oral mucosa moist, no exudate ENT- ears normal, nose normal Neck- supple/trach midline CVS-normal rate Lungs -regular nonlabored normal rate GI-flat Musc- moving 4 no obvious deformity Neuro- cranial nerves II through XII intact to gross examination, nonfocal Skin- warm and dry, no rashes/lesions/wounds noted Psych- pleasant and appropriate, Test 01/06/17 10:20 01/06/17 11:16 01/07/17 05:45 Hemoglobin A1c 9.4% (4.8-5.6) Lactic Acid Level 1.7mmol/L (0.4-2.0) Total Bilirubin 0.5mg/dL (0.0-1.2) Aspartate Amino Transf (AST/SGOT) 20U/L (0-50) Alanine Aminotransferase (ALT/SGPT) 13U/L (0-32) Alkaline Phosphatase 137U/L (25-165) Total Protein 6.5g/dL (6.4-8.4) Albumin 2.9g/dL (3.4-5.0) Lipase 13U/L (13-60) Procalcitonin 0.50ng/mL (0.00-0.08) Urine Color Yellow (YELLOW) Urine Appearance Clear (CLEAR,HAZY) Urine pH 6.0 (5.0-8.0) Urine Specific [place] 1.010 (1.003-1.035) Urine Protein Tracemg/dL (NEG,TRACE) Urine Glucose (UA) 1000mg/dL (NEGATIVE) Urine Ketones 15mg/dL (NEGATIVE) Urine Occult Blood Negative (NEGATIVE) Urine Nitrite Negative (NEGATIVE) Urine Bilirubin Negative (NEGATIVE) Urine Urobilinogen Normalmg/dL (NORMAL) Urine Leukocyte Esterase Negative (NEGATIVE) Urine RBC 0-2/hpf (0-2) Urine WBC 0-5/hpf (0-5) Urine Epithelial Cells Occasional/hpf (NONE-MOD) Urine Crystals None seen (NONE SEEN) Urine Bacteria None/hpf (NONE-FEW) Urine Hyaline Casts None/lpf (NONE) Urine Granular Casts None seen (NONE SEEN) Urine Waxy Casts None seen (NONE SEEN) Urine Red Blood Cell Casts None seen (NONE SEEN) Urine White Blood Cell Casts None seen (NONE SEEN) Urine Mucus None seen (None Seen) Urine Trichomonas None seen (NONE SEEN) Urine Yeast None (NONE SEEN) Urinalysis Comment Transitional epi Urine Culture Reflexed Not indicated White Blood Count 11.3th/mm3 (3.8-10.1) Red Blood Count 3.58mil/mm3 (3.90-5.20) Hemoglobin 11.3g/dL (12.0-15.6) Hematocrit 33.2% (35.0-46.0) Mean Corpuscular Volume 92.7fL (81-100) Mean Corpuscular Hemoglobin 31.6pg (27.0-35.0) Mean Corpuscular Hemoglobin Concent 34.0% (32.0-37.0) Red Cell Distribution Width 13.5% (12.3-15.4) Platelet Count 224bil/L (150-400) Neutrophils (%) (Auto) 84.4% (40-74) Lymphocytes (%) (Auto) 9.2% (14-46) Monocytes (%) (Auto) 6.0% (4-12) Eosinophils (%) (Auto) 0.1% (0-5) Basophils (%) (Auto) 0.1% (0-3) Prothrombin Time 10.7sec (8.1-12.5) Prothromb Time International Ratio 1.00ratio Activated Partial Thromboplast Time 34.8sec (22.8-33.0) Sodium Level 135mEq/L (134-144) Potassium Level 4.1mEq/L (3.5-5.2) Chloride Level 96mEq/L (97-108) Carbon Dioxide Level 26mmol/L (18-29) Blood Urea Nitrogen 15mg/dL (8-27) Creatinine 0.87mg/dL (0.57-1.00) Estimat Glomerular Filtration Rate 91mL/min (>59) Glucose Level 307mg/dL (60-99) Calcium Level 8.7mg/dL (8.5-10.1) Magnesium Level 2.0mg/dL (1.6-2.6) Troponin T 0.010ug/L (0.0-0.011) Triglycerides Level 142mg/dL (0-149) Cholesterol Level 165mg/dL (100-199) LDL Cholesterol, Calculated 113.600mg/dL (0-99) VLDL Cholesterol 28.400mg/dL HDL Cholesterol 23mg/dL (>39) Cholesterol/HDL Ratio 7.17 (0.0-4.4) Microbiology Results Bilateral, blood, MRSA all negative from 01/06 Discharge Medications Discharge Medications Amoxicillin/Clav K 250-62.5 mg Susp (Augmentin 250-62.5 mg Susp) 250 Mg/5 Ml Ml 18 ML PO BID Prescribed by: SHRUTHI BERMUDEZ MD Ascorbic Acid (Vitamin C) 250 Mg Tab.chew 500 MG PO DAILY (Reported) Citalopram (Citalopram) 40 Mg Tablet 40 MG PO DAILY (Reported) Ezetimibe (Ezetimibe) 10 Mg Tablet 10 MG PO QAM (Reported) Gabapentin (Gabapentin) 600 Mg Tablet 600 MG PO HS (Reported) Insulin Glargine (Lantus U100 Insulin Vial) 100 Unit/Ml Vial 40 SUBQ HS ( Reported) Insulin Human Lispro (HumaLOG U100 Insulin Vial) 100 Unit/Ml Unit 15 UNIT SUBQ TIDAC (Reported) Check blood sugars before meals and at bedtime. Use correction factor only before meals. Blood Sugar Lispro Correction: <151, 0 units; 151-175, 1 unit; 176-200, 2 units; 201-225, 3 units; 226-250, 4 units; 251-275, 5 units; 276-300 , 6 units; 301-325, 7 units; 326-350, 8 units; 351-375, 9 units; 376-400, 10 units; >400, 12 units. Lactobac Cmb #3/Fos/Pantethine (Probiotic & Acidophilus Cap) 1 Each Capsule 1 EACH PO DAILY (Reported) Morphine Sulfate (Morphine Sulfate) 15 Mg Tablet 15 MG PO QID (Reported) Nicotine 21 mg/24 hr Patch (Nicotine 21 mg/24 hr Patch) 1 Each Patch.td24 1 PATCH TOPICAL DAILY Prescribed by: SHRUTHI BERMUDEZ MD Omeprazole (Omeprazole) 20 Mg Capsule.dr 20 MG PO DAILY (Reported) Prednisolone Sod Phosphate (Prednisolone Sodium Phosphate) 15 Mg/5 Ml Solution 20 MG PO QAM (Reported) As needed Apple Juice (Thickenup) 237 Ml Liquid 237 ML PO ACHS PRN PRN dysphagia Prescribed by: SHRUTHI BERMUDEZ MD Clobetasol Propionate (Clobetasol Propionate) 15 Gm Oint...g. 1 APPLIC TP BID PRN PRN RASH (Reported) Loperamide (Loperamide) 2 Mg Capsule 2 MG PO Q4H PRN PRN For Diarrhea or Loose Stool (Reported) Ondansetron ODT (Zofran ODT) 4 Mg Tablet 4 MG PO Q4H PRN PRN For Nausea Prescribed by: GABRIEL SAUER MD Followup Plan Follow-up plan Needs a referral to gastroenterology and follow-up with PCP DEANDRE Discharge Diet: Heart Healthy, Other (thicken liquids as per speech) Discharge Activity: No restrictions Patient Instructions Finish course of antibiotics and be vigilant for symptoms of aspiration and pneumonia because of shortness of breath and if at all possible quit smoking Follow-up Provider: JUNIOR NICKERSON MD Follow-up with PCP in: 1 week Provider: Deshawn Mcgowan Andris E MD Jan 08, 2017 14:03
[2017-01-08] MEDS ORDERED: ONDA4TAB12 PO (16:03)
[2017-01-25] MEDS ORDERED: SULF1TAB34 PO (13:26)
[2017-01-25] MEDS ORDERED: LOPE2CAP PO (13:26)
[2017-01-25] MEDS ORDERED: GABA-502 PO (13:26)
[2017-01-25] MEDS ORDERED: CHOL500050 PO (13:26)
[2017-01-25] MEDS ORDERED: CHOL200025 PO (13:26)
[2017-01-25] MEDS ORDERED: FLUO20DR4 TOPICAL (13:26)
[2017-01-25] MEDS ORDERED: ATRINH INH (13:26)
[2017-01-25] MEDS ORDERED: IPRA3AMP IH (13:26)
[2017-01-25] MEDS ORDERED: BUPR100T15 PO (13:26)
== END 2017-01-08 16:03 | disposition home health service (06) | DRG 177 ==
LOC: SED 09:40 → INTOOBSV 12:19 → OBSVTOIN 12:19 → MPC 12:19
PROVIDERS: ADMIT Internal Medicine; ATTEND Internal Medicine
PROC: 4A033R1 Measurement of Arterial Saturation, Peripheral, Percutaneous Approach (ICD-10-PCS; principal; 2017-01-06)
DX: J69.0 Pneumonitis due to inhalation of food and vomit (principal); J96.01 Acute respiratory failure with hypoxia; E87.1 Hypo-osmolality and hyponatremia; I24.8 Other forms of acute ischemic heart disease; J44.1 Chronic obstructive pulmonary disease with (acute) exacerbation; C32.1 Malignant neoplasm of supraglottis; E86.0 Dehydration; Z79.4 Long term (current) use of insulin; F17.210 Nicotine dependence, cigarettes, uncomplicated; R13.10 Dysphagia, unspecified; E11.65 Type 2 diabetes mellitus with hyperglycemia